=== PATIENT | female | born 1980 | race Caucasian/White ===

== ENCOUNTER → 2016-11-28 | Outpatient (REF) | payer BC, OTHER ==
[~2016-11-28] MED LIST: /ADVA50050 INH; /AUGM875TA OR; /CELE20CA OR; /FEXO18TA OR; /ONDA4TA OR; PAIN325T OR; SING10TA31 OR; TOPI25TA2 OR; TRAM50TA2 OR; UNISOM PO; XOPEAER INH; YAZ3TAB2 OR; ZOLO100T PO
== END ==
LOC: M LAB REF 17:12
PROVIDERS: ATTEND Family Medicine
DX: Z12.4 Encounter for screening for malignant neoplasm of cervix (principal)
CPT/HCPCS: 87624; G0123

== ENCOUNTER 2019-01-10 18:35 | Emergency (ER) | payer BC ==
[~2019-01-10] VITALS: Ht 152.4 cm; Wt 53.2 kg
[~2019-01-10 18:35] MED LIST changes: -/ADVA50050 INH; -/CELE20CA OR; -/ONDA4TA OR; +ADVA1AER2 INH; +CELE1CAP4 OR; +ONDA-1 OR
[2019-01-10] MEDS ORDERED: TRAZ-163 PO (18:54)
[2019-01-10] MEDS ORDERED: DICY10CA13 PO (18:54)
[2019-01-10] MEDS ORDERED: METO10TA2 PO (18:54)
[2019-01-10] MEDS ORDERED: RIZA10TA2 PO (18:54)
[2019-01-10] MEDS ORDERED: OMEP-218 PO (18:54)
[2019-01-10] MEDS ORDERED: DULO1CAP5 PO (18:54)
[2019-01-10] MEDS ORDERED: ONDANSETRON 4MG/2ML VIAL (J2405) As Ordered ONE (19:05)
[2019-01-10] MEDS ORDERED: METOCLOPRAMIDE INJ 10MG/2ML VIAL (J2765) IV ONE (19:15)
[2019-01-10] MEDS ORDERED: ONDANSETRON 4MG/2ML VIAL (J2405) IV ONE (19:15)
[2019-01-10] MEDS ORDERED: NS 500 ML IV ONE (19:15)
[2019-01-10] MEDS ORDERED: NS 1,000 ML IV ONE (19:15)
[2019-01-10 19:16] LABS: BASO # 0.1 10^3/uL (0.0-0.2); BASO % 0.6 % (0.0-1.0); HEMATOCRIT 45.9 % (36.0-47.0); HEMOGLOBIN 15.4 g/dl (12.0-15.5); LYMPH % 25.3 % (24.0-44.0); MEAN CORPUSCULAR HEMOGLOBIN 30.1 pg (27.0-33.0); MEAN CORPUSCULAR HGB CONC 33.6 g/dl (32.0-36.5); MEAN CORPUSCULAR VOLUME 89.6 fl (80.0-96.0); MONO % 8.6 % (0.0-5.0); NEUTROPHILS # 6.8 10^3/uL (1.5-8.5); NEUTROPHILS % 57.2 % (36.0-66.0); PLATELET COUNT, AUTOMATED 276 10^3/uL (150-450); RED BLOOD COUNT 5.12 10^6/uL (4.00-5.40); WHITE BLOOD COUNT 11.9 10^3/uL (4.0-10.0)
[2019-01-10 19:37] LABS: ALT/SGPT 87 U/L (12-78); BLOOD UREA NITROGEN 13 MG/DL (7-18); CALCIUM LEVEL 9.2 MG/DL (8.5-10.1); CARBON DIOXIDE LEVEL 20 MEQ/L (21-32); CHLORIDE LEVEL 107 MEQ/L (98-107); CREATININE FOR GFR 0.99 MG/DL (0.55-1.30); GLOMERULAR FILTRATION RATE > 60.0 (>60); GLUCOSE, FASTING 122 MG/DL (70-100); POTASSIUM SERUM 3.6 MEQ/L (3.5-5.1); SODIUM LEVEL 137 MEQ/L (136-145)
[2019-01-10 19:38] LABS: ALBUMIN 3.8 GM/DL (3.2-5.2); BILIRUBIN,DIRECT 0.1 MG/DL (0.0-0.2); BILIRUBIN,TOTAL 0.4 MG/DL (0.2-1.0); LIPASE 151 U/L (73-393); TOTAL PROTEIN 7.3 GM/DL (6.4-8.2)
[2019-01-10 19:39] LABS: HCG, SERUM QUALITATIVE NEGATIVE (NEGATIVE)
[2019-01-10 20:31] VITALS: BP 145/66
== END 2019-01-10 20:48 | disposition home or self-care (01) ==
LOC: M ED 18:35
DX: A08.4 Viral intestinal infection, unspecified (principal); J45.909 Unspecified asthma, uncomplicated; F41.9 Anxiety disorder, unspecified; G43.909 Migraine, unspecified, not intractable, without status migrainosus; K21.9 Gastro-esophageal reflux disease without esophagitis; Z79.899 Other long term (current) drug therapy; Z79.3 Long term (current) use of hormonal contraceptives; Z88.1 Allergy status to other antibiotic agents; Z88.2 Allergy status to sulfonamides
CPT/HCPCS: 80048; 80076; 83690; 84703; 85025; 96361; 96374; 96375; 99284; J2405; J2765

== ENCOUNTER 2019-03-11 18:32 | Emergency (ER) | payer BC ==
[~2019-03-11] VITALS: Ht 152.4 cm; Wt 53.2 kg
[~2019-03-11 18:32] MED LIST changes: +DICY10CA13 PO; +DULO1CAP5 PO; +METO10TA2 PO; +OMEP-218 PO; +RIZA10TA2 PO; +TRAZ-163 PO
[2019-03-11 18:33] VITALS: BP 129/79
[2019-03-11] MEDS ORDERED: PROAAER10 INH (18:41)
[2019-03-11] MEDS ORDERED: ALPR0.5T3 (18:41)
[2019-03-11] MEDS ORDERED: dexameTHASONE 20 MG/5 ML VIAL (J1100) IV ONE (19:00)
[2019-03-11] MEDS ORDERED: IPRATROPIUM 0.5MG/ALBUTEROL 2.5MG INH SOL UD 3ML (DUONEB)(J7620) NEB ONE (19:15)
--- NOTE | 2019-03-11 19:40 | REP ---
Clinical: Dyspnea . Comparison: None . Findings: The mediastinum and cardiac silhouette are stable and within normal limits for portable technique. The lung jaquez are clear without acute consolidation, effusion, or pneumothorax. Skeletal structures are intact. Impression: No acute cardiopulmonary process appreciated. Electronically Signed by Roger Rice MD 03/11/2019 07:31 P
[2019-03-11 19:45] LABS: VENOUS BASE EXCESS -4.7 (-2.0-2.0); VENOUS HCO3 20.8 MEQ/L (23.0-27.0); VENOUS O2 SATURATION 63.1 % (60.0-80.0); VENOUS PARTIAL PRESSURE O2 33.3 mmHg (30.0-50.0); VENOUS PH 7.333 UNITS (7.330-7.430); VENOUS STANDARD HCO3 19.8 MEQ/L
[2019-03-11 19:48] LABS: BASO # 0.1 10^3/uL (0.0-0.2); BASO % 0.5 % (0.0-1.0); EOS # 2.9 10^3/uL (0.0-0.5); HEMATOCRIT 42.2 % (36.0-47.0); HEMOGLOBIN 13.4 g/dl (12.0-15.5); LYMPH # 0.8 10^3/uL (1.5-5.0); LYMPH % 6.6 % (24.0-44.0); MEAN CORPUSCULAR HEMOGLOBIN 28.8 pg (27.0-33.0); MEAN CORPUSCULAR HGB CONC 31.8 g/dl (32.0-36.5); MEAN CORPUSCULAR VOLUME 90.8 fl (80.0-96.0); MONO # 0.7 10^3/uL (0.0-0.8); MONO % 5.5 % (0.0-5.0); NEUTROPHILS # 8.1 10^3/uL (1.5-8.5); PLATELET COUNT, AUTOMATED 196 10^3/uL (150-450); RED BLOOD COUNT 4.65 10^6/uL (4.00-5.40); WHITE BLOOD COUNT 12.6 10^3/uL (4.0-10.0)
[2019-03-11 20:10] LABS: BLOOD UREA NITROGEN 13 MG/DL (7-18); CALCIUM LEVEL 8.3 MG/DL (8.5-10.1); CARBON DIOXIDE LEVEL 19 MEQ/L (21-32); CHLORIDE LEVEL 110 MEQ/L (98-107); CREATININE FOR GFR 0.78 MG/DL (0.55-1.30); GLOMERULAR FILTRATION RATE > 60.0 (>60); GLUCOSE, FASTING 98 MG/DL (70-100); POTASSIUM SERUM 3.5 MEQ/L (3.5-5.1); SODIUM LEVEL 140 MEQ/L (136-145)
== END 2019-03-11 22:19 | disposition home or self-care (01) ==
LOC: M ED 18:32
DX: J20.9 Acute bronchitis, unspecified (principal); J45.909 Unspecified asthma, uncomplicated; K21.9 Gastro-esophageal reflux disease without esophagitis; F33.9 Major depressive disorder, recurrent, unspecified; F41.9 Anxiety disorder, unspecified; Z86.69 Personal history of other diseases of the nervous system and sense organs; F17.210 Nicotine dependence, cigarettes, uncomplicated; Z88.2 Allergy status to sulfonamides; Z88.1 Allergy status to other antibiotic agents; Z79.51 Long term (current) use of inhaled steroids; Z79.83 Long term (current) use of bisphosphonates; Z79.899 Other long term (current) drug therapy
CPT/HCPCS: 71045; 80048; 82803; 85025; 87486; 87581; 87633; 87798; 94640; 96374; 99284; J1100

== ENCOUNTER → 2019-04-15 | Outpatient (REF) | payer BC ==
[~2019-04-15] MED LIST changes: +ALPR0.5T3; +PROAAER10 INH; -TRAZ-163 PO; +TRAZ-257 PO
[2019-04-15 18:34] LABS: BASO # 0.1 10^3/uL (0.0-0.2); BASO % 0.9 % (0.0-1.0); EOS # 2.7 10^3/uL (0.0-0.5); HEMATOCRIT 45.2 % (36.0-47.0); HEMOGLOBIN 14.2 g/dl (12.0-15.5); LYMPH # 3.9 10^3/uL (1.5-5.0); LYMPH % 36.8 % (24.0-44.0); MEAN CORPUSCULAR HGB CONC 31.4 g/dl (32.0-36.5); MEAN CORPUSCULAR VOLUME 92.4 fl (80.0-96.0); MONO # 0.6 10^3/uL (0.0-0.8); MONO % 5.3 % (0.0-5.0); NEUTROPHILS # 3.3 10^3/uL (1.5-8.5); NEUTROPHILS % 31.1 % (36.0-66.0); PLATELET COUNT, AUTOMATED 267 10^3/uL (150-450); RED BLOOD COUNT 4.89 10^6/uL (4.00-5.40); WHITE BLOOD COUNT 10.5 10^3/uL (4.0-10.0)
[2019-04-15 19:07] LABS: EOS % 25.7 % (0.0-3.0)
== END ==
LOC: M LAB REF 16:49
PROVIDERS: ATTEND Internal Medicine Pulmonary Disease
DX: J45.50 Severe persistent asthma, uncomplicated (principal)

== ENCOUNTER → 2019-08-06 | Outpatient (CLI) | payer BC ==
[2019-08-06 08:15] LABS: EOS # 0.4 10^3/uL (0.0-0.5)
[2019-08-11 16:08] LABS: ANCA-ATYPICAL <1:20 titer (Neg:<1:20); CYTOPLASMIC NEUTROP AB ANCA-C <1:20 titer (Neg:<1:20); PERINUCLEAR AB ANCA-P <1:20 titer (Neg:<1:20); PR3 ANTIPROTEINASE ANTIBODIES <3.5 U/mL (0.0-3.5)
== END ==
LOC: M LAB 06:59
PROVIDERS: ATTEND Internal Medicine Pulmonary Disease
DX: J45.40 Moderate persistent asthma, uncomplicated (principal)

== ENCOUNTER → 2020-03-01 | Outpatient (REF) | payer SELFPAY | LOC: EDSTATUS 11:50 → M LABSMTC 12:05 | PROVIDERS: ATTEND Pediatrics | DX: Z11.59 Encounter for screening for other viral diseases (principal) ==

== ENCOUNTER → 2020-03-24 | Outpatient (REF) | payer SELFPAY | LOC: EDSTATUS 12:30 → M LABSMTC 13:14 | PROVIDERS: ATTEND Pediatrics | DX: Z20.822 Contact with and (suspected) exposure to COVID-19 (principal) ==

== ENCOUNTER → 2020-08-19 | Outpatient (CLI) | payer BC ==
[2020-08-19 18:22] LABS: BASO # 0.1 10^3/uL (0.0-0.2); BASO % 0.8 % (0.0-1.0); EOS # 3.9 10^3/uL (0.0-0.5); HEMATOCRIT 43.7 % (36.0-47.0); HEMOGLOBIN 14.2 g/dl (12.0-15.5); LYMPH # 4.5 10^3/uL (1.5-5.0); LYMPH % 30.2 % (24.0-44.0); MEAN CORPUSCULAR HEMOGLOBIN 29.3 pg (27.0-33.0); MEAN CORPUSCULAR HGB CONC 32.5 g/dl (32.0-36.5); MEAN CORPUSCULAR VOLUME 90.1 fl (80.0-96.0); MONO # 0.8 10^3/uL (0.0-0.8); MONO % 5.3 % (2.0-8.0); NEUTROPHILS # 5.7 10^3/uL (1.5-8.5); NEUTROPHILS % 37.6 % (36.0-66.0); PLATELET COUNT, AUTOMATED 280 10^3/uL (150-450); RED BLOOD COUNT 4.85 10^6/uL (4.00-5.40)
[2020-08-19 18:53] LABS: ALBUMIN 3.8 GM/DL (3.2-5.2); ALT/SGPT 21 U/L (12-78); BILIRUBIN,TOTAL 0.2 MG/DL (0.2-1.0); BLOOD UREA NITROGEN 10 MG/DL (7-18); CARBON DIOXIDE LEVEL 22 MEQ/L (21-32); CHLORIDE LEVEL 107 MEQ/L (98-107); CREATININE FOR GFR 0.81 MG/DL (0.55-1.30); FERRITIN 67 NG/ML (8-252); FREE T4 0.85 NG/DL (0.76-1.46); GLOMERULAR FILTRATION RATE > 60.0 (>60); GLUCOSE, FASTING 92 MG/DL (70-100); IRON (FE) 41 UG/DL (50-170); PERCENT SATURATION 10.4 % (13.2-45.0); POTASSIUM SERUM 3.7 MEQ/L (3.5-5.1); SODIUM LEVEL 139 MEQ/L (136-145); TOTAL IRON BINDING CAPACITY 393 UG/DL (250-450); TOTAL PROTEIN 7.2 GM/DL (6.4-8.2)
[2020-08-19 18:55] LABS: EOS % 25.8 % (0.0-3.0); TOTAL 25(OH) VITAMIN D 31.1 NG/ML (30.0-100.0); VITAMIN B12 LEVEL 1341 PG/ML (247-911)
[2020-08-23 14:09] LABS: TISSUE TRANSGLUTAMINASE IgA <2 U/mL (0-3); TISSUE TRANSGLUTAMINASE IgG <2 U/mL (0-5); UNITSIGA FOR GLIADIN IGA 2 units (0-19); UNITSIGG FOR GLIADIN IGG 1 units (0-19)
== END ==
LOC: M LAB 18:00
PROVIDERS: ATTEND Family Medicine
DX: D50.8 Other iron deficiency anemias (principal)

== ENCOUNTER 2020-12-28 22:20 | Emergency (ER) | payer BC ==
[~2020-12-28] VITALS: Ht 162.6 cm; Wt 65.0 kg
--- OUTSIDE RECORDS SUMMARY | 2020-12-28 22:25 | CCD | Continuity of Care Document ---
Author Author Laurie LUCAS Organization [place] [address] Phone [phone] Care Team Providers Care Trench Trimmer Fine Name Role Phone Audrey Morrison D.O. AUTM [phone] James Aldana D.O. PHD AUTM Problems Active Problems Provider Date Uncomplicated moderate persistent asthma Nathan Blanca Onset: 07/04/2016 Moderate recurrent major depression LEATHA Blanca Ons et: 07/04/2016 Insomnia LEATHA Blanca Onset: 07/04/2016 Status migrainosus LEATHA Blanca Onset: 07/04/2016 Social History Type Date Description Comments Sex Unknown ETOH Use Occasionally consumes alcohol Tobacco Use Start: Unknown Patient has never smoked Recreational Drug Use Denies Drug Use Smoking Status Reviewed: 08/02/20 Patient has never smoked Exercise Type/Frequency Does not exercise Sun Exposure Uses sunscreen Seat Belt/Car Seat Always uses seat belt Allergies and adverse reactions Active Allergies Criticality Reaction | Severity Comments Date Cefaclor Unable to assess criticality Urticaria 07/04/2016 Doxycycline Unable to assess criticality Urticaria 07/04/2016 Sulfa Unable to assess criticality Nausea and Vomiting 07/04/2016 Ambien Unable to assess criticality Sleep walking 07/18/2016 Medications Active Medications SIG Qnty Indications Ordering Provide r Date Quetiapine Fumarate 100mg Tablets Take one tablet by mouth one hour before bed 90tabs Audrey Monroe D.O. 12/27/2020 Alprazolam 0.5mg Tablets take one tablet by mouth every 8 hours as needed 42tabs F06.31 Sushil TuckerOUbaldo 12/08/2020 Montelukast Sodium 10mg Tablets Take 1 Tablet Every Night 90tabs Sushil ArredondoOUbaldo Venlafaxine HCL ER 150mg Caps ER 2 4HR 1 by mouth every day 90caps F33.2 Sushil ArredondoOUbaldo 08/02 Topiramate 100mg Tablets Take 1 Tablet Twice A Day 180tabs Sushil ArredondoOUbaldo 06/13 Drospirenone-Ethinyl Estradiol 3-0.02mg Tablets Take 1 Tablet Daily 84tabs Sushil ArredondoOUbaldo 06/02/2018 Rizatriptan Benzoate 10mg Tablets Take 1 Tablet AT The Start Of Headache And Repeat In 2 Hours If Needed 14tabs Domitila Arredondo.OUbaldo 03/18/2018 Ventolin HFA 108(90Base) mcg/Act A erosol 2 puffs every 4 hours shortness of breath or wheezing 24gm Sushil ArredondoOUbaldo 01/24/2018 Ipratropium [place]/Albuterol Sulfate 0.5-2.5(3)mg/3ML Solution 4 x a day as needed 180units J06.9 Sushil GrayOUbaldo 12/09/2017 Budesonide 0.5mg/2ML Suspension 1 vial via nebulizer two times a day 1box J06.9 Sushil ArredondoOUbaldo 12/09/2017 Dicyclomine HCL 10mg Capsules Take 2 Capsules Every Evening 180caps Domitila Arredondo.O . 02/19/2017 Dupixent 300mg/2ML Soln Prefill Syringe Wendie Davis MD Advair Diskus 100-50mcg/Dose Aeros ol inhale one puff by mouth twice a day not covered Unknown Vitamin D3 50mcg (2000 Ut) Capsule s 1 by mouth every day Unknown Flovent HFA 220mcg/Act Aerosol two puffs twice a day as needed Unknown Omeprazole 20mg Capsules DR Take 1 Capsule Daily 90caps Sushil ArredondoO. Trazodone HCL 100mg Tablets Take 1 Tablet Every Night AT Bedtime 90tabs Sushil ArredondoO . Citrucel 500mg Tablets 1 tab by mouth twice a day Unknown Zofran 4mg Tablets 1 tablet every 6h as needed nausea 30tabs Sushil ArredondoO. Multivitamin Adult Tablets 1 by mouth every day Unknown Magnesium 400mg Tablets one tablet by mouth once per day 90tabs Sushil ArredondoOUbaldo Probiotic Capsules 1 caps in th in the morning Unknown Cristina Allergy 180mg Tablets take 1 tab by mouth daily Unknown History Medications Seroquel 200mg Tablets Take one tablet by mouth each night, one hour before bed. 30tabs F06.31 Sushil YoungO. 12/13/2020 - 12/13/2020 Quetiapine Fumarate 200mg Tablets Take one tablet by mouth one hour before bed 30tabs Sushil KochOUbaldo 12/13/2020 - 12/27/2020 Quetiapine Fumarate 100mg Tablets Take one tablet by mouth each night, one hour before bed. 30tabs F06.31 Sushil ClintonO. 12/08/2020 - 12/13/2020 Singulair 5mg Chewtabs 1 by mouth every day 90units J45.40 Sushil ArredondoOUbaldo 10/10 - 11/07/2020 Aripiprazole 2mg Tablets take one tablet by mouth once a night. 30tabs F43.22 Sushil ArredondoO . 10/10/2020 - 11/07/2020 Ferrous Gluconate 324(38Fe) mg Tab lets 1 by mouth every day 90tabs D50.9 Sushil ArredondoOUbaldo - 11/07/2020 Ferrous Sulfate 325(65Fe) mg Table ts 1 by mouth every day 90tabs D50.9 Sushil ArredondoOUbaldo 08/23 - 09/20/2020 Clonazepam 1mg Tablets take one tablet by mouth twice a day as needed maximum daily dose = 2 istop: [id number] 60tabs F33.2 Domitila Arredondo.O. 08/23/2020 - 12/08/2020 Xanax 0.5mg Tablets take one tablet by daily as needed istop [id number] 30tabs Domitila Soliz.O. 08/23/2020 - 12/08/2020 Clonazepam 0.5mg Tablets take one tablet by mouth twice a day as needed maximum daily dose = 2 istop: [id number] 30tabs F33.2 Doimtila Arredondo.OUbaldo 08/02/2020 - 08/23/2020 Medications Administered in Office Medication SIG Qnty Indications Ordering Provider Date Injection Promethazine Hci To 50 MG Injection LEATHA Blanca 017 Injection Ketorolac Tromethamine Per 15 MG (Toradol) Injection LEATHA Davey 07/04/2016 Therapeutic, Prophylactic Or Diagnostic Injection Subq/Im Injection LEATHA Davey 07/04/2016 Immunizations CPT Code Status Date Vaccine Lot # [id number] Given 12/27/2020 Influenza Virus Vaccine, Quadrivalent, Slit Virus, Im Use [id number] Vital Signs Date Vital Result Comment 12/27/2020 11:26am BP Systolic 126 mmHg BP Diastolic 78 mmHg Height 58.8 inches 4'10.80" Weight 130.00 lb BMI (Body Mass Index) 26.4 kg/m2 Heart Rate 103 /min Respiratory Rate 18 /min Body Temperature 97.3 F O2 % BldC Oximetry 98 % [place] Body Weight 100 lb 12/13/2020 11:24am BP Systolic 118 mmHg BP Diastolic 78 mmHg Height 58.8 inches 4'10.80" Weight 129.00 lb BMI (Body Mass Index) 26.2 kg/m2 Heart Rate 84 /min Respiratory Rate 18 /min Body Temperature 98.0 F O2 % BldC Oximetry 99 % [place] Body Weight 100 lb Results Test Acquired Date Facility Test Result H/L Range Note Laboratory test finding 08/19/[address] [address] [phone] Total 25(Oh) Vitamin D 31.1 NG/ML Normal 30.0-100. 0 FT4&TSH Panel 08/19/2020 [facility] [address] [place] [address] [phone] Thyroid Stimulating Hormone 3.370 uIU/ML Normal 0. 358-3.740 Free T4 0.85 ng/dL Normal 0.76-1.46 Comprehensive Metabolic Profil 08/19/[address] [address] [phone] Glucose, Fasting 92 mg/dL Normal 70-100 Blood Urea Nitrogen 10 mg/dL Normal 7-18 Creatinine For GFR 0.81 mg/dL Normal 0.55-1.30 Glomerular Filtration Rate > 60.0 Normal >60 1 Sodium Level 139 mEq/L Normal 136-145 Potassium Serum 3.7 mEq/L Normal 3.5-5.1 Chloride Level 107 mEq/L Normal 98-107 Carbon Dioxide Level 22 mEq/L Normal 21-32 Anion Gap 10 mEq/L Normal 8-16 Calcium Level 9.0 mg/dL Normal 8.5-10.1 Ast/Sgot 9 U/L Normal 7-37 Alt/SGPT 21 U/L Normal 12-78 Alkaline Phosphatase 73 U/L Normal 45-117 Bilirubin,Total 0.2 mg/dL Normal 0.2-1.0 Total Protein 7.2 GM/DL Normal 6.4-8.2 Albumin 3.8 GM/DL Normal 3.2-5.2 Albumin/Globulin Ratio 1.1 Low 1.2-2.2 CBC With Differential 08/19/[address] [address] [phone] White Blood Count 15.0 10 High 4.0-10.0 Red Blood Count 4.85 10 Normal 4.00-5.40 Hemoglobin 14.2 g/dL Normal 12.0-15.5 Hematocrit 43.7 % Normal 36.0-47.0 Mean Corpuscular Volume 90.1 fl Normal 80.0-96.0 Mean Corpuscular Hemoglobin 29.3 pg Normal 27.0-33.0 Mean Corpuscular HGB Conc 32.5 g/dL Normal 32.0-36.5 Red Cell Distribution Width 14.3 % Normal 11.5-14.5 Platelet Count, Automated 280 10 Normal 150-450 Neutrophils % 37.6 % Normal 36.0-66.0 Lymph % 30.2 % Normal 24.0-44.0 Bond % 5.3 % Normal 2.0-8.0 Eos % 25.8 % High 0.0-3.0 2 Baso % 0.8 % Normal 0.0-1.0 Immature Granulocyte % 0.3 % Normal 0-3.0 Nucleated Red Blood Cell % 0.0 % Normal 0-0 Neutrophils # 5.7 10 Normal 1.5-8.5 Lymph # 4.5 10 Normal 1.5-5.0 Bond # 0.8 10 Normal 0.0-0.8 Eos # 3.9 10 High 0.0-0.5 Baso # 0.1 10 Normal 0.0-0.2 Laboratory test finding 08/19/[address] [address] [phone] Vitamin B12 Level 1341 pg/mL High 247-911 3 Ferritin 67 NG/ML Normal 8-252 Total Iron Binding Capacit 08/19/[address] 6267179 [phone] Iron (Fe) 41 g/dL Low 50-170 Total Iron Binding Capacity 393 g/dL Normal 250-450 Percent Saturation 10.4 % Low 13.2-45.0 Anti-Gliadin Antibody 08/19/[address] [id number] [phone] Unitsiga For Gliadin Iga 2 units Normal 0-19 4 Unitsigg For Gliadin Igg 1 units Normal 0-19 5 Laboratory test finding 08/19/[address] [address] [phone] Tissue Transglutaminase IgG <2 U/mL Normal 0-5 6 Tissue Transglutaminase IgA <2 U/mL Normal 0-3 7 1 Units are mL/min/1.73 m2 Chronic Kidney Disease Staging per NKF: Stage I & II GFR >=60 Normal to Mildly Decreased Stage III GFR 30-59 Moderately Decreased Stage IV GFR 15-29 Severely Decreased Stage V GFR <15 Very Little GFR Left ESRD GFR <15 on LIVESTOCK DEALER 2 Scan Verified machine result s 3 VITAMIN B12 NORMAL RANGE NORMAL 247 - 911 PG/ML INDETERMINATE 211 - 246 PG/ML DEFICIENT LESS THAN 211 PG/ML 4 Negative 0 - 19 Weak Positive 20 - 30 Moderate to Strong Positive >30 5 Negative 0 - 19 Weak Positive 20 - 30 Moderate to Strong Positive >30 6 Negative 0 - 5 Weak Positive 6 - 9 Positive >9 Performed at: RN - [facility] [address] [id number] Ehr Trainer: Viry Marr MD, Phone: [phone] 7 Negative 0 - 3 Weak Positive 4 - 10 Positive >10 . Tissue Transglutaminase (tTG) has been identified as the endomysial antigen. Studies have demonstr- ated that endomysial IgA antibodies have over 99% specificity for gluten sensitive enteropathy. Procedures Date Code Description Status 12/27/2020 45924 Office/Outpatient Established Mo d MDM 30-39 Min Completed 12/13/2020 38327 Office/Outpatient Established Mo d MDM 30-39 Min Completed 12/08/2020 21269 Office/Outpatient Established Mo d MDM 30-39 Min Completed 12/08/2020 44899 Brief Emotional/Beha v Assessment W/ Scoring Doc Per Standard Inst Completed 11/07/2020 68052 Office/Outpatient Established Lo w MDM 20-29 Min Completed 10/10/2020 68732 Office/Outpatient Established Mo d MDM 30-39 Min Completed 10/10/2020 82171 Brief Emotional/Beha v Assessment W/ Scoring Doc Per Standard Inst Completed 08/23/2020 21051 Office/Outpatient Established Mo d MDM 30-39 Min Completed 08/02/2020 31728 Office/Outpatient Established Mo d MDM 30-39 Min Completed Medical Devices Description No Information Available Encounters Type Date Location Provider Dx Diagnosis Office Visit 12/27/2020 11:20a Family Medicine [facility] LEATHA Pino F33.1 Major depressive disorder, r ecurrent, moderate 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 G47.00 Insomnia, unspecified Z23 Encounter for immunization Office Visit 12/13/2020 11:30a Family [facility] LEATHA Chisholm F33.1 Major depressive disorder, r ecurrent, moderate 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 Office Visit 12/08/2020 11:20a [facility] LEATHA Chisholm F33.1 Major depressive disorder, r ecurrent, moderate R45.851 Suicidal ideations 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 Office Visit 11/07/2020 10:30a [facility] LEATHA Chisholm F33.1 Major depressive disorder, r ecurrent, moderate G47.00 Insomnia, unspecified G43.901 Migraine, unsp, not intracta ble, with status migrainosus 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 F33.2 Major depressv disorder, rec urrent severe w/o psych features G47.00 Insomnia, unspecified G43.901 Migraine, unsp, not intracta ble, with status migrainosus F41.9 Anxiety disorder, unspecifie d E55.9 Vitamin D deficiency, unspec ified J45.40 Moderate persistent asthma, uncomplicated D50.9 Iron deficiency anemia, unsp ecified Office Visit 08/02/2020 8:40a [facility] Audrey Morrison D.O. 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 LEATHA Chisholm 12/27/2020 G47.00 Insomnia, unspecified LEATHA Arreaga 12/27/2020 Z23 Encounter for immunization LEATHA Howard 12/13/2020 F33.1 Major depressive disorder, recur rent, moderate LEATHA Chisholm 12/13/2020 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 LEATHA Chisholm 12/08/2020 F33.1 Major depressive disorder, recur rent, moderate LEATHA Chisholm 12/08/2020 R45.851 Suicidal ideations LEATHA Delgado 12/08/2020 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 LEATHA Chisholm 11/07/2020 F33.1 Major depressive disorder, recur rent, moderate LEATHA Chisholm 11/07/2020 G47.00 Insomnia, unspecified LEATHA Arreaga 11/07/2020 G43.901 Migraine, unspecifie d, not intractable, with status migrainosus LEATHA Chisholm 11/07/2020 Z79.899 Other senior care (current) drug t herapy LEATHA Chisholm 10/10/2020 D50.9 Iron deficiency anemia, unspecif ied LEATHA Chisholm 10/10/2020 K58.0 Irritable bowel syndrome with di arrhea LEATHA Chisholm 10/10/2020 J45.40 Moderate persistent asthma, unco mplicated LEATHA Chisholm 10/10/2020 F43.22 Adjustment disorder with anxiety LEATHA Chisholm 10/10/2020 F33.2 Major depressive dis order, recurrent severe without psychotic features LEATHA Chisholm 08/23/2020 F33.2 Major depressive dis order, recurrent severe without psychotic features Audrey Morrison, D.O. 08/23/2020 G47.00 Insomnia, unspecified Audrey Mosher, D.O. 08/23/2020 G43.901 Migraine, unspecifie d, not intractable, with status migrainosus Audrey Morrison, D.O. 08/23/2020 F41.9 Anxiety disorder, unspecified Terrence Norwoodber, D.O. 08/23/2020 E55.9 Vitamin D deficiency, unspecifie d Audrey Morrison, D.O. 08/23/2020 J45.40 Moderate persistent asthma, unco mplicated Audrey Coon, D.O. 08/23/2020 D50.9 Iron deficiency anemia, unspecif ied Audrey Morrison, D.O. 08/02/2020 F33.2 Major depressive dis order, recurrent severe without psychotic features Audrey Morrison, D.O. 08/02/2020 G47.00 Insomnia, unspecified Audrey Mosher, D.O. 08/02/2020 G43.901 Migraine, unspecifie d, not intractable, with status migrainosus Audrey Morrison, D.O. 08/02/2020 F41.9 Anxiety disorder, unspecified Terrence Morrison, D.O. 08/02/2020 Z13.29 Encounter for screen ing for other suspected endocrine disorder Audrey Morrison D.O. 08/02/2020 E55.9 Vitamin D deficiency, unspecifie d Audrey Morrison, D.O. Plan of Treatment Future Appointment(s):* 01/27/2021 9:40 am - LEATHA Chisholm at [facility] Functional Status Description No Information Available Mental Status Description No Information Available Referrals Refer to Dr Reason for Referral Status Appt Date James Aldana D.O. PHD Laurie has depression with mood disorder and some active thoughts of SI without a plan. Please evaluate and treat. Sent 01/11/2021 [employer] [address] [place] [address] [phone]
--- OUTSIDE RECORDS SUMMARY | 2020-12-28 22:25 | CCD | Continuity of Care Document ---
Author Author Laurie LUCAS Organization Unknown [place] [address] Phone [phone] Care Team Providers Care Cloth Mercerizer Operator Name Role Phone Audrey Morrison D.O. AUTM [phone] James Aldana D.O. PHD AUTM [phone] Problems Active Problems Provider Date Uncomplicated moderate [...] or wheezing 24gm Sushil ArredondoOUbaldo 01/24/2018 Ipratropium [place]/Albuterol Sulfate 0.5-2.5(3)mg/3ML Solution 4 x a day [...] needed maximum daily dose = 2 istop: [id number] 60tabs F33.2 Domitila Arredondo.O. 08/23/2020 - 12/08/2020 Xanax 0.5mg Tablets take one tablet by daily as needed istop [id number] 30tabs Domitila Soliz.O. 08/23/2020 - 12/08/2020 Clonazepam 0.5mg Tablets take one tablet by mouth twice a day as needed maximum daily dose = 2 istop: [id number] 30tabs F33.2 Domitila Arredondo.OUbaldo 08/02/2020 - 08/23/2020 Medications Administered in Office Medication SIG Qnty Indications Ordering Provider Date Injection Promethazine Hci To 50 MG Injection LEATHA Blanca 017 Injection Ketorolac Tromethamine Per 15 MG (Toradol) Injection LEATHA Davey 07/04/2016 Therapeutic, Prophylactic Or Diagnostic Injection Subq/Im Injection LEATHA Davey 07/04/2016 Immunizations CPT Code Status Date Vaccine Lot # [id number] Given 12/27/2020 Influenza Virus Vaccine, Quadrivalent, Slit Virus, Im Use [id number] Vital Signs Date Vital Result Comment 12/27/2020 11:26am BP Systolic 126 mmHg BP Diastolic 78 mmHg Height 58.8 inches 4'10.80" Weight 130.00 lb BMI (Body Mass Index) 26.4 kg/m2 Heart Rate 103 /min Respiratory Rate 18 /min Body Temperature 97.3 F O2 % BldC Oximetry 98 % [place] Body Weight 100 lb 12/13/2020 11:24am BP Systolic 118 mmHg BP Diastolic 78 mmHg Height 58.8 inches 4'10.80" Weight 129.00 lb BMI (Body Mass Index) 26.2 kg/m2 Heart Rate 84 /min Respiratory Rate 18 /min Body Temperature 98.0 F O2 % BldC Oximetry 99 % [place] Body Weight 100 lb Results Test Acquired Date Facility Test Result H/L Range Note Laboratory test finding 08/19/[address] [address] [phone] Total 25(Oh) Vitamin D 31.1 NG/ML Normal 30.0-100. 0 FT4&TSH Panel 08/19/2020 [facility] nter [address] [place] [address] [phone] Thyroid Stimulating Hormone 3.370 uIU/ML Normal 0. 358-3.740 Free T4 0.85 ng/dL Normal 0.76-1.46 Comprehensive Metabolic Profil 08/19/[address] [address] [phone] Glucose, Fasting 92 mg/dL Normal 70-100 Blood [...] 1.1 Low 1.2-2.2 CBC With Differential 08/19/[address] [address] [phone] White Blood Count 15.0 10 High 4.0-10.0 [...] 36.0-66.0 Lymph % 30.2 % Normal 24.0-44.0 [place] % 5.3 % Normal 2.0-8.0 Eos % 25.8 % High 0.0-3.0 2 Baso % 0.8 % Normal 0.0-1.0 Immature Granulocyte % 0.3 % Normal 0-3.0 Nucleated Red Blood Cell % 0.0 % Normal 0-0 Neutrophils # 5.7 10 Normal 1.5-8.5 Lymph # 4.5 10 Normal 1.5-5.0 [place] # 0.8 10 Normal 0.0-0.8 Eos # 3.9 10 High 0.0-0.5 Baso # 0.1 10 Normal 0.0-0.2 Laboratory test finding 08/19/[address] [address] [phone] Vitamin B12 Level 1341 pg/mL High 247-911 3 Ferritin 67 NG/ML Normal 8-252 Total Iron Binding Capacit 08/19/[address] [address]124 [phone] Iron (Fe) 41 g/dL Low 50-170 Total Iron Binding Capacity 393 g/dL Normal 250-450 Percent Saturation 10.4 % Low 13.2-45.0 Anti-Gliadin Antibody 08/19/[address] [id number] [phone] Unitsiga For Gliadin Iga 2 units Normal 0-19 4 Unitsigg For Gliadin Igg 1 units Normal 0-19 5 Laboratory test finding 08/19/[address] [address] [phone] Tissue Transglutaminase IgG <2 U/mL Normal 0-5 6 Tissue Transglutaminase IgA <2 U/mL Normal 0-3 7 1 Units are mL/min/1.73 m2 Chronic Kidney Disease Staging per NKF: Stage I & II GFR >=60 Normal to Mildly Decreased Stage III GFR 30-59 Moderately Decreased Stage IV GFR 15-29 Severely Decreased Stage V GFR <15 Very Little GFR Left ESRD GFR <15 on 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 Tissue Transglutaminase (tTG) has been identified as the endomysial antigen. Studies have demonstr- ated that endomysial IgA antibodies have over 99% specificity for gluten sensitive enteropathy. Procedures Date Code Description Status 12/27/2020 08744 Office/Outpatient Established Mo d MDM 30-39 Min Completed 12/13/2020 32964 Office/Outpatient Established Mo d MDM 30-39 Min Completed 12/08/2020 75760 Office/Outpatient Established Mo d MDM 30-39 Min Completed 12/08/2020 72195 Brief Emotional/Beha v Assessment W/ Scoring Doc Per Standard Inst Completed 11/07/2020 20162 Office/Outpatient Established Lo w MDM 20-29 Min Completed 10/10/2020 23973 Office/Outpatient Established Mo d MDM 30-39 Min Completed 10/10/2020 03937 Brief Emotional/Beha v Assessment W/ Scoring Doc Per Standard Inst Completed 08/23/2020 98790 Office/Outpatient Established Mo d MDM 30-39 Min Completed 08/02/2020 14079 Office/Outpatient Established Mo d MDM 30-39 Min Completed Medical Devices Description No Information Available Encounters Type Date Location Provider Dx Diagnosis Office Visit 12/27/2020 11:20a Family Medicine [facility] LEATHA Pino F33.1 Major depressive disorder, r ecurrent, moderate 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 G47.00 Insomnia, unspecified Z23 Encounter for immunization Office Visit 12/13/2020 11:30a Family [facility] LEATHA Chisholm F33.1 Major depressive disorder, r ecurrent, moderate 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 Office Visit 12/08/2020 11:20a [facility] LEATHA Chisholm F33.1 Major depressive disorder, r ecurrent, moderate R45.851 Suicidal ideations 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 Office Visit 11/07/2020 10:30a [facility] LEATHA Chisholm F33.1 Major depressive disorder, r ecurrent, moderate G47.00 Insomnia, unspecified G43.901 Migraine, unsp, not intracta ble, with status migrainosus 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 F33.2 Major depressv disorder, rec urrent severe w/o psych features G47.00 Insomnia, unspecified G43.901 Migraine, unsp, not intracta ble, with status migrainosus F41.9 Anxiety disorder, unspecifie d E55.9 Vitamin D deficiency, unspec ified J45.40 Moderate persistent asthma, uncomplicated D50.9 Iron deficiency anemia, unsp ecified Office Visit 08/02/2020 8:40a [facility] Audrey Morrison D.O. F33.2 Major depressv disorder, [...] status migrainosus LEATHA Chisholm 11/07/2020 Z79.899 Other residential (current) drug t herapy LEATHA Chisholm 10/10/2020 [...] 01/27/2021 9:40 am - LEATHA Chisholm at [facility] Functional Status Description No Information Available Mental Status Description No Information Available Referrals Refer to Dr Reason for Referral Status Appt Date James Aldana D.O. PHD Laurie has depression with mood disorder and some active thoughts of SI without a plan. Please evaluate and treat. Sent 01/11/2021 [facility] [address] [place] [address] [phone]
--- OUTSIDE RECORDS SUMMARY | 2020-12-28 22:26 | CCD | Continuity of Care Document ---
Author Author Laurie LUCAS Organization [place] [address] Phone [phone] Care Team Providers Care Billing Checker Name Role Phone Audrey Morrison D.O. AUTM Problems Active Problems Provider Date Uncomplicated moderate persistent asthma Nathan Blanca Onset: 07/04/2016 Moderate recurrent major depression LEATHA Blanca Ons et: 07/04/2016 Insomnia LEATHA Blanca Onset: 07/04/2016 Status migrainosus LEATHA Blacna Onset: 07/04/2016 Social History Type Date Description Comments Sex Unknown ETOH Use Occasionally consumes alcohol Tobacco Use Start: Unknown Patient has never smoked Recreational Drug Use Denies Drug Use Smoking Status Reviewed: 08/02/20 Patient has never smoked Exercise Type/Frequency Does not exercise Sun Exposure Uses sunscreen Seat Belt/Car Seat Always uses seat belt Allergies, Adverse Reactions, Alerts Active Allergies Criticality Reaction | Severity Comments [...] night, one hour before bed. 30tabs F06.31 Audrey Coon DUbaldoOUbaldo 12/08/2020 Alprazolam 0.5mg Tablets take one tablet by mouth every 8 hours as needed 21tabs F06.31 Audrey bland DUbaldoO. 12/08/2020 Montelukast Sodium 10mg Tablets Take 1 [...] Repeat In 2 Hours If Needed 14tabs Sushil ArredondoOUbaldo 03/18/2018 Ventolin HFA 108(90Base) mcg/Act A erosol 2 puffs every 4 hours shortness of breath or wheezing 24gm Sushil ArredondoOUbaldo 01/24/2018 Ipratropium [place]/Albuterol Sulfate 0.5-2.5(3)mg/3ML Solution 4 x a day as needed 180units J06.9 Yamilet Coon D.O. 12/09/2017 Budesonide 0.5mg/2ML Suspension 1 vial via nebulizer two times a day 1box J06.9 Sushil ArredondoOUbaldo 12/09/2017 Dicyclomine HCL 10mg Capsules Take 2 Capsules Every Evening 180caps Sushil ArredondoO Ubaldo 02/19/2017 Dupixent 300mg/2ML Soln Prefill Syringe Wendie Davis MD Advair Diskus 100-50mcg/Dose Aeros ol inhale one puff by mouth twice a day not covered Unknown Vitamin D3 50mcg (2000 Ut) Capsule s 1 by mouth every day Unknown Flovent HFA 220mcg/Act Aerosol two puffs twice a day as needed Unknown Zofran 4mg Tablets 1 tablet every 6h as needed nausea 30tabs Sushil ArredondoOUbaldo Omeprazole 20mg Capsules DR Take 1 Capsule Daily 90caps Sushil ArredondoO. Citrucel 500mg Tablets 1 tab by mouth twice a day Unknown Trazodone HCL 100mg Tablets Take 1 Tablet Every Night AT Bedtime 90tabs Sushil ArredondoO Ubaldo Multivitamin Adult Tablets 1 by mouth every day Unknown Magnesium 400mg Tablets one tablet by mouth once per day 90tabs Sushil ArredondoOUbaldo Probiotic Capsules 1 caps in th in the morning Unknown Cristina Allergy 180mg Tablets take 1 tab by mouth daily Unknown History Medications Singulair 5mg Chewtabs 1 by mouth every day 90units J45.40 Sushil ArredondoOUbaldo 10/10 - 11/07/2020 Aripiprazole 2mg Tablets take one tablet by mouth once a night. 30tabs F43.22 Sushil ArredondoO Ubaldo 10/10/2020 - 11/07/2020 Ferrous Gluconate 324(38Fe) mg Tab lets 1 by mouth every day 90tabs D50.9 Sushil ArredondoO. - 11/07/2020 Ferrous Sulfate 325(65Fe) mg Table ts 1 by mouth every day 90tabs D50.9 Domitila Arredondo.O. 08/23 - 09/20/2020 Clonazepam 1mg Tablets take one tablet by mouth twice a day as needed maximum daily dose = 2 istop: [id number] 60tabs F33.2 Sushil ArredondoO. 08/23/2020 - 12/08/2020 Xanax 0.5mg Tablets take one tablet by daily as needed istop [id number] 30tabs Sushil SolizOUbaldo 08/23/2020 - 12/08/2020 Clonazepam 0.5mg Tablets take one tablet by mouth twice a day as needed maximum daily dose = 2 istop: [id number] 30tabs F33.2 Audrey Morrison D.O. 08/02/2020 - 08/23/2020 Medications Administered in Office Medication SIG Qnty Indications Ordering Provider Date Injection Promethazine Hci To 50 MG Injection LEATHA Blanca 017 Injection Ketorolac Tromethamine Per 15 MG (Toradol) Injection LEATHA Davey 07/04/2016 Therapeutic, Prophylactic Or Diagnostic Injection Subq/Im Injection LEATHA Davey 07/04/2016 Immunizations Description No Information Available Vital Signs Date Vital Result Comment 11/07/2020 10:45am BP Systolic 118 mmHg BP Diastolic 78 mmHg Height 58.8 inches 4'10.80" Weight 129.50 lb BMI (Body Mass Index) 26.3 kg/m2 Heart Rate 95 /min Respiratory Rate 18 /min Body Temperature 97.9 F O2 % BldC Oximetry 95 % [place] Body Weight 100 lb 10/10/2020 1:25pm BP Systolic 120 mmHg BP Diastolic 78 mmHg Height 58.8 inches 4'10.80" Weight 133.38 lb BMI (Body Mass Index) 27.1 kg/m2 Heart Rate 101 /min Respiratory Rate 14 /min Body Temperature 98.4 F O2 % BldC Oximetry 98 % [place] Body Weight 100 lb Results Test Acquired Date Facility Test Result H/L Range Note Laboratory test finding 08/19/[address] [id number] [phone] Total 25(Oh) Vitamin D 31.1 NG/ML Normal 30.0-100. 0 FT4&TSH Panel 08/19/2020 [facility] nter [address] [place] [address] [id number] [phone] Thyroid Stimulating Hormone 3.370 uIU/ML Normal 0. 358-3.740 Free T4 0.85 ng/dL Normal 0.76-1.46 Comprehensive Metabolic Profil 08/19/[address] 7263140 [phone] Glucose, Fasting 92 mg/dL Normal 70-100 Blood [...] 1.1 Low 1.2-2.2 CBC With Differential 08/19/2020 [place] [id number] [phone] White Blood Count 15.0 10 High 4.0-10.0 [...] 36.0-66.0 Lymph % 30.2 % Normal 24.0-44.0 [place] % 5.3 % Normal 2.0-8.0 Eos % 25.8 % High 0.0-3.0 2 Baso % 0.8 % Normal 0.0-1.0 Immature Granulocyte % 0.3 % Normal 0-3.0 Nucleated Red Blood Cell % 0.0 % Normal 0-0 Neutrophils # 5.7 10 Normal 1.5-8.5 Lymph # 4.5 10 Normal 1.5-5.0 [place] # 0.8 10 Normal 0.0-0.8 Eos # 3.9 10 High 0.0-0.5 Baso # 0.1 10 Normal 0.0-0.2 Laboratory test finding 08/19/[address] [address] [phone] Vitamin B12 Level 1341 pg/mL High 247-911 3 Ferritin 67 NG/ML Normal 8-252 Total Iron Binding Capacit 08/19/[address] [address] [phone] Iron (Fe) 41 g/dL Low 50-170 Total Iron Binding Capacity 393 g/dL Normal 250-450 Percent Saturation 10.4 % Low 13.2-45.0 Anti-Gliadin Antibody 08/19/[address] [address] [phone] Unitsiga For Gliadin Iga 2 units Normal 0-19 4 Unitsigg For Gliadin Igg 1 units Normal 0-19 5 Laboratory test finding 08/19/[address] [address] [phone] Tissue Transglutaminase IgG <2 U/mL Normal 0-5 6 Tissue Transglutaminase IgA <2 U/mL Normal 0-3 7 1 Units are mL/min/1.73 m2 Chronic Kidney Disease Staging per NKF: Stage I & II GFR >=60 Normal to Mildly Decreased Stage III GFR 30-59 Moderately Decreased Stage IV GFR 15-29 Severely Decreased Stage V GFR <15 Very Little GFR Left ESRD GFR <15 on STOCK HANDLER 2 Scan Verified machine result s 3 [...] Positive >9 Performed at: RN - [facility] [address] [id number] Dance Entertainer: Viry Marr MD, Phone: [phone] Negative 0 - 3 Weak Positive 4 - 10 Positive >10 . Tissue Transglutaminase (tTG) has been identified as the endomysial antigen. Studies have demonstr- ated that endomysial IgA antibodies have over 99% specificity for gluten sensitive enteropathy. Procedures Date Code Description Status 12/08/2020 25545 Office/Outpatient Established Mo d MDM 30-39 Min Completed 12/08/2020 66564 Brief Emotional/Beha v Assessment W/ Scoring Doc Per Standard Inst Completed 11/07/2020 77523 Office/Outpatient Established Lo w MDM 20-29 Min Completed 10/10/2020 03524 Office/Outpatient Established Mo d MDM 30-39 Min Completed 10/10/2020 18695 Brief Emotional/Beha v Assessment W/ Scoring Doc Per Standard Inst Completed 08/23/2020 82875 Office/Outpatient Established Mo d MDM 30-39 Min Completed 08/02/2020 15296 Office/Outpatient Established Mo d MDM 30-39 Min Completed Medical Devices Description No Information Available Encounters Type Date Location Provider Dx Diagnosis Office Visit 12/08/2020 11:20a [facility] [...] intracta ble, with status migrainosus Z79.899 Other senior care (current) dr martinez therapy Office Visit 10/10/2020 [...] anemia, unsp ecified Office Visit 08/02/2020 8:40a [facility] Pardeep Morrison D.O. 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 08/23/2020 G47.00 Insomnia, unspecified Audrey rodriguez-Shaggy, D.O. 08/23/2020 G43.901 Migraine, unspecifie d, not intractable, with status migrainosus Audrey Morrison, D.O. 08/23/2020 F41.9 Anxiety disorder, unspecified Ji koffi Fernandono-Shaggy, D.O. 08/23/2020 E55.9 Vitamin D deficiency, unspecifie d Audrey Zambrano-Shaggy, D.O. 08/23/2020 J45.40 Moderate persistent asthma, unco mplicated Audrey Coon, D.O. 08/23/2020 D50.9 Iron deficiency anemia, unspecif ied Audrey Zambrano-Shaggy, D.O. 08/02/2020 F33.2 Major depressive dis order, recurrent severe without psychotic features Audrey Morrison, D.O. 08/02/2020 G47.00 Insomnia, unspecified Audrey rodriguez-Shaggy, D.O. 08/02/2020 G43.901 Migraine, unspecifie d, not intractable, with status migrainosus Audrey Zambrano-Shaggy, D.O. 08/02/2020 F41.9 Anxiety disorder, unspecified Terrence Zambrano-Shaggy, D.O. 08/02/2020 Z13.29 Encounter for screen ing for other suspected endocrine disorder Audrey Morrison, D.O. 08/02/2020 E55.9 Vitamin D deficiency, unspecifie d Audrey Morrison, D.O. Plan of Treatment Future Appointment(s):* 12/13/2020 11:30 am - LEATHA Chisholm at [facility] Functional Status Description No Information Available Mental Status Description No Information Available Referrals Refer to Reason for Referral Status Appt Date James Aldana D.O. PHD Laurie has depression with mood disorder and some active thoughts of SI without a plan. Please evaluate and treat. Created [facility] [address] [place] [address] [phone]
--- OUTSIDE RECORDS SUMMARY | 2020-12-28 22:26 | CCD | Continuity of Care Document ---
Author Author Laurie LUCAS Organization [place] [address] Phone [phone] Care Team Providers Care Sonoscope Operator Name Role Phone Audrey Morrison D.O. AUTM [phone] James Aldana D.O. PHD AUTM Problems Active [...] or wheezing 24gm Sushil ArredondoOUbaldo 01/24/2018 Ipratropium [place]/Albuterol Sulfate 0.5-2.5(3)mg/3ML Solution 4 x a day as needed 180units J06.9 Sushil rGayOUbaldo 12/09/2017 Budesonide 0.5mg/2ML Suspension 1 vial via [...] by mouth every day 90units J45.40 Sushil rAredondoOUbaldo 10/10 - 11/07/2020 Aripiprazole 2mg Tablets take [...] needed maximum daily dose = 2 istop: [id number] 60tabs F33.2 Domitila Arredondo.O. 08/23/2020 - 12/08/2020 Xanax 0.5mg Tablets take one tablet by daily as needed istop [id number] 30tabs Domitila Soliz.O. 08/23/2020 - 12/08/2020 Clonazepam 0.5mg Tablets take one tablet by mouth twice a day as needed maximum daily dose = 2 istop: [id number] 30tabs F33.2 Domitila Arredondo.OUbaldo 08/02/2020 - 08/23/2020 Medications Administered in Office Medication SIG Qnty Indications Ordering Provider Date Injection Promethazine Hci To 50 MG Injection LEATHA Blanca 017 Injection Ketorolac Tromethamine Per 15 MG (Toradol) Injection LEATHA Davey 07/04/2016 Therapeutic, Prophylactic Or Diagnostic Injection Subq/Im Injection LEATHA Davey 07/04/2016 Immunizations CPT Code Status Date Vaccine Lot # [id number] Given 12/27/2020 Influenza Virus Vaccine, Quadrivalent, Slit Virus, Im Use [id number] Vital Signs Date Vital Result Comment 12/27/2020 11:26am BP Systolic 126 mmHg BP Diastolic 78 mmHg Height 58.8 inches 4'10.80" Weight 130.00 lb BMI (Body Mass Index) 26.4 kg/m2 Heart Rate 103 /min Respiratory Rate 18 /min Body Temperature 97.3 F O2 % BldC Oximetry 98 % [place] Body Weight 100 lb 12/13/2020 11:24am BP Systolic 118 mmHg BP Diastolic 78 mmHg Height 58.8 inches 4'10.80" Weight 129.00 lb BMI (Body Mass Index) 26.2 kg/m2 Heart Rate 84 /min Respiratory Rate 18 /min Body Temperature 98.0 F O2 % BldC Oximetry 99 % [place] Body Weight 100 lb Results Test Acquired Date Facility Test Result H/L Range Note Laboratory test finding 08/19/[address] [address] [phone] Total 25(Oh) Vitamin D 31.1 NG/ML Normal 30.0-100. 0 FT4&TSH Panel 08/19/[facility] [address] [place] [address] [phone] Thyroid Stimulating Hormone 3.370 uIU/ML Normal 0. 358-3.740 Free T4 0.85 ng/dL Normal 0.76-1.46 Comprehensive Metabolic Profil 08/19/[address] [address] [phone] Glucose, Fasting 92 mg/dL Normal 70-100 Blood [...] 1.1 Low 1.2-2.2 CBC With Differential 08/19/[address] [address] [phone] White Blood Count 15.0 10 High 4.0-10.0 [...] 36.0-66.0 Lymph % 30.2 % Normal 24.0-44.0 [place] % 5.3 % Normal 2.0-8.0 Eos % 25.8 % High 0.0-3.0 2 Baso % 0.8 % Normal 0.0-1.0 Immature Granulocyte % 0.3 % Normal 0-3.0 Nucleated Red Blood Cell % 0.0 % Normal 0-0 Neutrophils # 5.7 10 Normal 1.5-8.5 Lymph # 4.5 10 Normal 1.5-5.0 [place] # 0.8 10 Normal 0.0-0.8 Eos # 3.9 10 High 0.0-0.5 Baso # 0.1 10 Normal 0.0-0.2 Laboratory test finding 08/19/[address] [address] [phone] Vitamin B12 Level 1341 pg/mL High 247-911 3 Ferritin 67 NG/ML Normal 8-252 Total Iron Binding Capacit 08/19/[address] [id number] [phone] Iron (Fe) 41 g/dL Low 50-170 Total Iron Binding Capacity 393 g/dL Normal 250-450 Percent Saturation 10.4 % Low 13.2-45.0 Anti-Gliadin Antibody 08/19/[address] 7208438 [phone] Unitsiga For Gliadin Iga 2 units Normal 0-19 4 Unitsigg For Gliadin Igg 1 units Normal 0-19 5 Laboratory test finding 08/19/[address] [address] [phone] Tissue Transglutaminase IgG <2 U/mL Normal 0-5 6 Tissue Transglutaminase IgA <2 U/mL Normal 0-3 7 1 Units are mL/min/1.73 m2 Chronic Kidney Disease Staging per NKF: Stage I & II GFR >=60 Normal to Mildly Decreased Stage III GFR 30-59 Moderately Decreased Stage IV GFR 15-29 Severely Decreased Stage V GFR <15 Very Little GFR Left ESRD GFR <15 on ANILINE PRESS WORKER 2 Scan Verified machine result s 3 [...] Positive >9 Performed at: RN - [facility] [address] [id number] Cloth Desizing Range Operator Chief: Viry Marr MD, Phone: [phone] Negative 0 - 3 Weak Positive 4 - 10 Positive >10 . Tissue Transglutaminase (tTG) has been identified as the endomysial antigen. Studies have demonstr- ated that endomysial IgA antibodies have over 99% specificity for gluten sensitive enteropathy. Procedures Date Code Description Status 12/27/2020 42078 Office/Outpatient Established Mo d MDM 30-39 Min Completed 12/13/2020 18896 Office/Outpatient Established Mo d MDM 30-39 Min Completed 12/08/2020 90542 Office/Outpatient Established Mo d MDM 30-39 Min Completed 12/08/2020 60899 Brief Emotional/Beha v Assessment W/ Scoring Doc Per Standard Inst Completed 11/07/2020 23355 Office/Outpatient Established Lo w MDM 20-29 Min Completed 10/10/2020 58761 Office/Outpatient Established Mo d MDM 30-39 Min Completed 10/10/2020 81309 Brief Emotional/Beha v Assessment W/ Scoring Doc Per Standard Inst Completed 08/23/2020 32103 Office/Outpatient Established Mo d MDM 30-39 Min Completed 08/02/2020 15237 Office/Outpatient Established Mo d MDM 30-39 Min Completed Medical Devices Description No Information Available Encounters Type Date Location Provider Dx Diagnosis Office Visit 12/27/2020 11:20a Family [facility] LEATHA Pino F33.1 Major depressive disorder, r ecurrent, moderate 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 G47.00 Insomnia, unspecified Z23 Encounter for immunization Office Visit 12/13/2020 11:30a Family [facility] LEATHA Chisholm F33.1 Major depressive disorder, r ecurrent, moderate 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 Office Visit 12/08/2020 11:20a [facility] LEATHA Chisholm F33.1 Major depressive disorder, r ecurrent, moderate R45.851 Suicidal ideations 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 Office Visit 11/07/2020 10:30a [facility] LEATHA Chisholm F33.1 Major depressive disorder, r ecurrent, moderate G47.00 Insomnia, unspecified G43.901 Migraine, unsp, not intracta ble, with status migrainosus Z79.899 Other manager terminal (current) dr martinez therapy Office Visit 10/10/2020 1:15p [facility] LEATHA Chisholm D50.9 Iron deficiency anemia, unsp ecified K58.0 Irritable bowel syndrome wit h diarrhea J45.40 Moderate persistent asthma, uncomplicated F43.22 Adjustment disorder with anx iety F33.2 Major depressv disorder, rec urrent severe w/o psych features Office Visit 08/23/2020 8:40a [facility] Audrey Morrison D.O. F33.2 Major depressv disorder, rec urrent severe w/o psych features G47.00 Insomnia, unspecified G43.901 Migraine, unsp, not intracta ble, with status migrainosus F41.9 Anxiety disorder, unspecifie d E55.9 Vitamin D deficiency, unspec ified J45.40 Moderate persistent asthma, uncomplicated D50.9 Iron deficiency anemia, unsp ecified Office Visit 08/02/2020 8:40a [facility] Audrey Morrison D.O. F33.2 Major depressv [...] 01/27/2021 9:40 am - LEATHA Chisholm at [facility] Functional Status Description No Information Available Mental Status Description No Information Available Referrals Refer to Dr Reason for Referral Status Appt Date James Aldana D.O. PHD Laurie has depression with mood disorder and some active thoughts of SI without a plan. Please evaluate and treat. Sent 01/11/2021 [facility] [address] [place] [address] [phone]
--- OUTSIDE RECORDS SUMMARY | 2020-12-28 22:26 | CCD | Continuity of Care Document ---
Author Author Laurie LUCAS [place] [address] Phone [phone] Care Team Providers Care Resident Services Manager Name Role Phone Audrey Morrison D.O. AUTM [phone] Problems Active Problems Provider Date Uncomplicated moderate [...] SIG Qnty Indications Ordering Provide r Date Xanax 0.5mg Tablets take one tablet by daily as needed istop [id number] 30tabs Audrey meyers DUbaldoOUbaldo 08/23/2020 Clonazepam 1mg Tablets take one tablet by mouth twice a day as needed maximum daily dose = 2 istop: [id number] 60tabs F33.2 Sushil ArredondoOUbaldo 08/23/2020 Venlafaxine HCL ER 150mg Caps ER 2 [...] breath or wheezing 24gm Sushil ArredondoOUbaldo 01/24/2018 Budesonide 0.5mg/2ML Suspension 1 vial via nebulizer two times a day 1box J06.9 Sushil ArredondoOUbaldo 12/09/2017 Ipratropium [place]/Albuterol Sulfate 0.5-2.5(3)mg/3ML Solution 4 x a day as needed 180units J06.9 Sushil GrayOUbaldo 12/09/2017 Dicyclomine HCL 10mg Capsules Take 2 Capsules Every Evening 180caps Sushil ArredondoO Ubaldo 02/19/2017 Zofran 4mg Tablets 1 tablet every 6h as needed nausea 30tabs Sushil ArredondoOUbaldo Singulair 10mg Tablets 1 by mouth every day Unknown Dupixent 300mg/2ML Soln Prefill Syringe Wendie Davis [...] Night AT Bedtime 90tabs Sushil ArredondoO . Multivitamin Adult Tablets 1 by mouth every [...] mouth every day 90tabs D50.9 Sushil ArredondoO. 08/23 - 09/20/2020 Clonazepam 0.5mg Tablets take one tablet by mouth twice a day as needed maximum daily dose = 2 istop: [id number] 30tabs F33.2 Sushil ArredondoO. 08/02/2020 - 08/23/2020 Medications Administered in Office [...] F O2 % BldC Oximetry 95 % [place] Body Weight 100 lb 10/10/2020 1:25pm BP Systolic 120 mmHg BP Diastolic 78 mmHg Height 58.8 inches 4'10.80" Weight 133.38 lb BMI (Body Mass Index) 27.1 kg/m2 Heart Rate 101 /min Respiratory Rate 14 /min Body Temperature 98.4 F O2 % BldC Oximetry 98 % [place] Body Weight 100 lb Results Test Acquired Date Facility Test Result H/L Range Note Laboratory test finding 08/19/[address] [address] [phone] Total 25(Oh) Vitamin D 31.1 NG/ML Normal 30.0-100. 0 FT4&TSH Panel 08/19/2020 [facility] [address] [place] [address] [phone] Thyroid Stimulating Hormone 3.370 uIU/ML Normal 0. 358-3.740 Free T4 0.85 ng/dL Normal 0.76-1.46 Comprehensive Metabolic Profil 08/19/[address] [address] [phone] Glucose, Fasting 92 mg/dL Normal 70-100 Blood [...] 1.1 Low 1.2-2.2 CBC With Differential 08/19/[address] [address] [phone] White Blood Count 15.0 10 High 4.0-10.0 [...] 36.0-66.0 Lymph % 30.2 % Normal 24.0-44.0 [place] % 5.3 % Normal 2.0-8.0 Eos % 25.8 % High 0.0-3.0 2 Baso % 0.8 % Normal 0.0-1.0 Immature Granulocyte % 0.3 % Normal 0-3.0 Nucleated Red Blood Cell % 0.0 % Normal 0-0 Neutrophils # 5.7 10 Normal 1.5-8.5 Lymph # 4.5 10 Normal 1.5-5.0 [place] # 0.8 10 Normal 0.0-0.8 Eos # 3.9 10 High 0.0-0.5 Baso # 0.1 10 Normal 0.0-0.2 Laboratory test finding 08/19/[address] [address] [phone] Vitamin B12 Level 1341 pg/mL High 247-911 3 Ferritin 67 NG/ML Normal 8-252 Total Iron Binding Capacit 08/19/[address] [place] [address] [phone] Iron (Fe) 41 g/dL Low 50-170 Total Iron Binding Capacity 393 g/dL Normal 250-450 Percent Saturation 10.4 % Low 13.2-45.0 Anti-Gliadin Antibody 08/19/[address] [address] [phone] Unitsiga For Gliadin Iga 2 units Normal 0-19 4 Unitsigg For Gliadin Igg 1 units Normal 0-19 5 Laboratory test finding 08/19/[address] [address] [phone] Tissue Transglutaminase IgG <2 U/mL Normal 0-5 6 Tissue Transglutaminase IgA <2 U/mL Normal 0-3 7 1 Units are mL/min/1.73 m2 Chronic Kidney Disease Staging per NKF: Stage I & II GFR >=60 Normal to Mildly Decreased Stage III GFR 30-59 Moderately Decreased Stage IV GFR 15-29 Severely Decreased Stage V GFR <15 Very Little GFR Left ESRD GFR <15 on RN LABOR DELIVERY 2 Scan Verified machine result s 3 [...] Positive >9 Performed at: RN - [facility] [address] [id number] Supervisor Fur Dressing: Viry Marr MD, Phone: [phone] 7 Negative 0 - 3 Weak Positive 4 - 10 Positive >10 . Tissue Transglutaminase (tTG) has been identified as the endomysial antigen. Studies have demonstr- ated that endomysial IgA antibodies have over 99% specificity for gluten sensitive enteropathy. Procedures Date Code Description Status 11/07/2020 98844 Office/Outpatient Established Lo w MDM 20-29 Min Completed 10/10/2020 57655 Office/Outpatient Established Mo d MDM 30-39 Min Completed 10/10/2020 35114 Brief Emotional/Beha v Assessment W/ Scoring Doc Per Standard Inst Completed 08/23/2020 60007 Office/Outpatient Established Mo d MDM 30-39 Min Completed 08/02/2020 22869 Office/Outpatient Established Mo d MDM 30-39 Min Completed Medical Devices Description No Information Available Encounters Type Date Location Provider Dx Diagnosis Office Visit 11/07/2020 10:30a [facility] LEATHA Chisholm F33.1 Major depressive disorder, r ecurrent, moderate G47.00 Insomnia, unspecified G43.901 Migraine, unsp, not intracta ble, with status migrainosus Z79.899 Other senior living (current) dr martinez therapy Office Visit 10/10/2020 1:15p [facility] LEATHA Chisholm D50.9 Iron deficiency anemia, unsp ecified K58.0 Irritable bowel syndrome wit h diarrhea J45.40 Moderate persistent asthma, uncomplicated F43.22 Adjustment disorder with anx iety F33.2 Major depressv disorder, rec urrent severe w/o psych features Office Visit 08/23/2020 8:40a [facility] Domitila Arredondo.Maryam F33.2 Major depressv disorder, rec urrent severe w/o psych features G47.00 Insomnia, unspecified G43.901 Migraine, unsp, not intracta ble, with status migrainosus F41.9 Anxiety disorder, unspecifie d E55.9 Vitamin D deficiency, unspec ified J45.40 Moderate persistent asthma, uncomplicated D50.9 Iron deficiency anemia, unsp ecified Office Visit 08/02/2020 8:40a [facility] Domitila Arredondo.John. F33.2 Major depressv disorder, rec urrent severe w/o psych features G47.00 Insomnia, unspecified G43.901 Migraine, unsp, not intracta ble, with status migrainosus F41.9 Anxiety disorder, unspecifie d Z13.29 Encounter for screening for oth suspected endocrine disorder E55.9 Vitamin D deficiency, unspec ified Assessments Date Code Description Provider 11/07/2020 F33.1 Major depressive disorder, recur rent, moderate LEATHA Chisholm 11/07/2020 G47.00 Insomnia, unspecified LEATHA Arreaga 11/07/2020 G43.901 Migraine, unspecifie d, not intractable, with status migrainosus LEATHA Chisholm 11/07/2020 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 08/23/2020 F41.9 Anxiety disorder, unspecified Terrence Zambrano-Shaggy, D.O. 08/23/2020 E55.9 Vitamin D deficiency, unspecifie d Audrey Morrison, D.O. 08/23/2020 J45.40 Moderate persistent asthma, unco mplicated Audrey Bautistaber, D.O. 08/23/2020 D50.9 Iron deficiency anemia, unspecif ied Audrey Morrison, D.O. 08/02/2020 F33.2 Major depressive dis order, recurrent severe without psychotic features Audrey Morrison, D.O. 08/02/2020 G47.00 Insomnia, unspecified Audrey Pikeber, D.O. 08/02/2020 G43.901 Migraine, unspecifie d, not intractable, with status migrainosus Audreykoffi Morrison D.O. 08/02/2020 F41.9 Anxiety disorder, unspecified Terrence Morrison D.O. 08/02/2020 Z13.29 Encounter for screen ing for other suspected endocrine disorder Audrey Morrison D.O. 08/02/2020 E55.9 Vitamin D deficiency, unspecifie d Audrey Morrison D.O. Plan of Treatment Future Appointment(s):* 12/08/2020 11:20 am - LEATHA Chisholm at [facility] Functional Status Description No Information Available Mental Status Description No Information Available Referrals Description No Information Available
--- OUTSIDE RECORDS SUMMARY | 2020-12-28 22:26 | CCD | Continuity of Care Document ---
Author Author Laurie LUCAS Organization [place] [address] Phone [phone] Care Team Providers Care Telecom Field Technician Name Role Phone Audrey Morrison D.O. AUTM [...] belt Allergies, Adverse Reactions, Alerts Active Allergies Reaction Severity Comments Date Cefaclor Urticaria 07/04/2016 Doxycycline Urticaria 07/04/2016 Sulfa Nausea and Vomiting 07/05/19 17 Ambien Sleep walking 07/18/2016 Medications Active Medications SIG Qnty Indications Ordering Provide r Date Aripiprazole 2mg Tablets take one tablet by mouth once a night. 30tabs F43.22 Audrey Morrison D.O Ubaldo 10/10/2020 Singulair 5mg Chewtabs 1 by mouth every day 90units J45.40 Audrey Morrison D.OUbaldo 10/10 Ferrous Gluconate 324(38Fe) mg Tab lets 1 by mouth every day 90tabs D50.9 Audrey Morrison D.OUbaldo Clonazepam 1mg Tablets take one tablet by mouth twice a day as needed maximum daily dose = 2 istop: [id number] 60tabs F33.2 Sushil ArredondoO. 08/23/2020 Xanax 0.5mg Tablets take one tablet by daily as needed istop [id number] 30tabs Sushil SolizOUbaldo 08/23/2020 Venlafaxine HCL ER 150mg Caps ER 2 4HR 1 by mouth every day 90caps F33.2 Domitila Arredondo.OUbaldo 08/02 Topiramate 100mg Tablets Take 1 Tablet Twice A Day 180tabs Sushil ArredondoOUbaldo 06/13 Drospirenone-Ethinyl Estradiol 3-0.02mg Tablets Take 1 Tablet Daily 84tabs Sushil ArredondoOUbaldo 06/02/2018 Rizatriptan Benzoate 10mg Tablets Take 1 Tablet AT The Start Of Headache And Repeat In 2 Hours If Needed 14tabs Sushil ArredondoOUbaldo 03/18/2018 Metoclopramide HCL 10mg Tablets take one tablet by mouth every six hours as needed for nausea 180tabs Sushil ClintonOUbaldo 03/18/2018 Ventolin HFA 108(90Base) mcg/Act A erosol 2 puffs every 4 hours shortness of breath or wheezing 24gm Sushil ArredondoOUbaldo 01/24/2018 Ipratropium [place]/Albuterol Sulfate 0.5-2.5(3)mg/3ML Solution 4 x a day as needed 180units J06.9 Sushil GrayOUbaldo 12/09/2017 Budesonide 0.5mg/2ML Suspension 1 vial via nebulizer two times a day 1box J06.9 Sushil ArredondoOUbaldo 12/09/2017 Dicyclomine HCL 10mg Capsules Take 2 Capsules Every Evening 180caps Sushil ArredondoO Ubaldo 02/19/2017 Dupixent 300mg/2ML Soln Prefill Syringe Wendie Davis MD B Complex Tablets 1 by mo uth every day Unknown Advair Diskus 100-50mcg/Dose Aeros ol inhale one puff by mouth twice a day not covered Unknown Vitamin D3 50mcg (2000 Ut) Capsule s 1 by mouth every day Unknown Vitamin B12 500mcg Tablets 1 by mouth every day Unknown Flovent HFA 220mcg/Act Aerosol two puffs twice a day as needed Unknown Omeprazole 20mg Capsules DR Take 1 Capsule Daily 90caps Domitila Arredondo.O. Citrucel 500mg Tablets 1 tab by mouth twice a day Unknown Trazodone HCL 100mg Tablets Take 1 Tablet Every Night AT Bedtime 90tabs Sushil ArredondoO . Zofran 4mg Tablets 1 tablet every 6h as needed nausea 30tabs Domitila Arredondo.O. Multivitamin Adult Tablets 1 by mouth every day Unknown Magnesium 400mg Tablets one tablet by mouth once per day 90tabs Domitila Arredondo.O. Probiotic Capsules 1 caps in th in the morning Unknown Cristina Allergy 180mg Tablets take 1 tab by mouth daily Unknown History Medications Ferrous Sulfate 325(65Fe) mg Table ts 1 by mouth every day 90tabs D50.9 Sushil ArredondoO. 08/23 - 09/20/2020 Clonazepam 0.5mg Tablets take one tablet by mouth twice a day as needed maximum daily dose = 2 istop: [id number] 30tabs F33.2 Sushil ArredondoO. 08/02/2020 - 08/23/2020 Medications Administered in Office Medication SIG Qnty Indications Ordering Provider Date Injection Promethazine Hci To 50 MG Injection LEATHA Blanca 017 Injection Ketorolac Tromethamine Per 15 MG (Toradol) Injection LEATHA Davey 07/04/2016 Therapeutic, Prophylactic Or Diagnostic Injection Subq/Im Injection LEATHA Davey 07/04/2016 Immunizations Description No Information Available Vital Signs Date Vital Result Comment 10/10/2020 1:25pm BP Systolic 120 mmHg BP Diastolic 78 mmHg Height 58.8 inches 4'10.80" Weight 133.38 lb BMI (Body Mass Index) 27.1 kg/m2 Heart Rate 101 /min Respiratory Rate 14 /min Body Temperature 98.4 F O2 % BldC Oximetry 98 % [place] Body Weight 100 lb 08/23/2020 8:46am BP Systolic 118 mmHg BP Diastolic 80 mmHg Height 58.8 inches 4'10.80" Weight 134.00 lb BMI (Body Mass Index) 27.2 kg/m2 Heart Rate 85 /min Respiratory Rate 16 /min Body Temperature 97.2 F O2 % BldC Oximetry 99 % [place] Body Weight 100 lb Results Test Acquired Date Facility Test Result H/L Range Note Laboratory test finding 08/19/[address] [id number] [phone] Total 25(Oh) Vitamin D 31.1 NG/ML Normal 30.0-100. 0 FT4&TSH Panel 08/19/2020 [facility] nter [address] [place] [address] [phone] Thyroid Stimulating Hormone 3.370 uIU/ML Normal 0. 358-3.740 Free T4 0.85 ng/dL Normal 0.76-1.46 Comprehensive Metabolic Profil 08/19/[address] [id number] [phone] Glucose, Fasting 92 mg/dL Normal 70-100 Blood [...] 1.1 Low 1.2-2.2 CBC With Differential 08/19/[address] [address] [phone] White Blood Count 15.0 10 High 4.0-10.0 [...] 36.0-66.0 Lymph % 30.2 % Normal 24.0-44.0 [place] % 5.3 % Normal 2.0-8.0 Eos % 25.8 % High 0.0-3.0 2 Baso % 0.8 % Normal 0.0-1.0 Immature Granulocyte % 0.3 % Normal 0-3.0 Nucleated Red Blood Cell % 0.0 % Normal 0-0 Neutrophils # 5.7 10 Normal 1.5-8.5 Lymph # 4.5 10 Normal 1.5-5.0 [place] # 0.8 10 Normal 0.0-0.8 Eos # 3.9 10 High 0.0-0.5 Baso # 0.1 10 Normal 0.0-0.2 Laboratory test finding 08/19/[address] [address] [phone] Vitamin B12 Level 1341 pg/mL High 247-911 3 Ferritin 67 NG/ML Normal 8-252 Total Iron Binding Capacit 08/19/2020 [facility] [address] [place] [address] [phone] Iron (Fe) 41 g/dL Low 50-170 Total Iron Binding Capacity 393 g/dL Normal 250-450 Percent Saturation 10.4 % Low 13.2-45.0 Anti-Gliadin Antibody 08/19/[address] [address] [phone] Unitsiga For Gliadin Iga 2 units Normal 0-19 4 Unitsigg For Gliadin Igg 1 units Normal 0-19 5 Laboratory test finding 08/19/[address] [address] [phone] Tissue Transglutaminase IgG <2 U/mL Normal 0-5 6 Tissue Transglutaminase IgA <2 U/mL Normal 0-3 7 1 Units are mL/min/1.73 m2 Chronic Kidney Disease Staging per NKF: Stage I & II GFR >=60 Normal to Mildly Decreased Stage III GFR 30-59 Moderately Decreased Stage IV GFR 15-29 Severely Decreased Stage V GFR <15 Very Little GFR Left ESRD GFR <15 on [employer] 2 Scan Verified machine result s 3 [...] Positive >9 Performed at: RN - [facility] [address] [id number] City Letter Carrier: Viry Marr MD, Phone: [phone] Negative 0 - 3 Weak Positive 4 - 10 Positive >10 . Tissue Transglutaminase (tTG) has been identified as the endomysial antigen. Studies have demonstr- ated that endomysial IgA antibodies have over 99% specificity for gluten sensitive enteropathy. Procedures Date Code Description Status 10/10/2020 36830 Office/Outpatient Established Mo d MDM 30-39 Min Completed 10/10/2020 54098 Brief Emotional/Beha v Assessment W/ Scoring Doc Per Standard Inst Completed 08/23/2020 41341 Office/Outpatient Established Mo d MDM 30-39 Min Completed 08/02/2020 55715 Office/Outpatient Established Mo d MDM 30-39 Min Completed Medical Devices Description No Information Available Encounters Type Date Location Provider Dx Diagnosis Office Visit 10/10/2020 1:15p [facility] LEATHA Pino D50.9 Iron deficiency anemia, unsp ecified K58.0 [...] 08/02/2020 8:40a [facility] Audrey Morrison D.OUbaldo F33.2 Major depressv disorder, rec urrent severe w/o psych features G47.00 Insomnia, unspecified G43.901 Migraine, unsp, not intracta ble, with status migrainosus F41.9 Anxiety disorder, unspecifie d Z13.29 Encounter for screening for oth suspected endocrine disorder E55.9 Vitamin D deficiency, unspec ified Assessments Date Code Description Provider 10/10/2020 D50.9 Iron deficiency anemia, unspecif ied [...] D.O. 08/23/2020 F41.9 Anxiety disorder, unspecified Terrence Morrison, D.O. 08/23/2020 E55.9 Vitamin D deficiency, unspecifie [...] D.O. 08/02/2020 F41.9 Anxiety disorder, unspecified Terrence Norwoodber, D.O. 08/02/2020 Z13.29 Encounter for screen ing for other suspected endocrine disorder Audrey Morrison, D.O. 08/02/2020 E55.9 Vitamin D deficiency, unspecifie d Audrey Morrison, D.O. Plan of Treatment Future Appointment(s):* 10/26/2020 8:00 am - LEATHA Chisholm at [facility] 10/10/2020 - LEATHA Chisholm* D50.9 Iron deficiency anemia, unspecified* Comments:* Continue with iron supplement * K58.0 Irritable bowel syndrome with diarrhea* Comments:* Admittedly diet has been bad and partially contributes to diarrhea. * J45.40 Moderate persistent asthma, uncomplicated* New Medication:* Singulair 5 mg - 1 by mouth every day * Comments:* Reduce your Singulair from 10 mg to 5 mg to see if this helps with your irritability but still controls your asthma / allergies well. * F43.22 Adjustment disorder with anxiety* New Medication:* Aripiprazole 2 mg - take one tablet by mouth once a night. * Comments:* We will start Abilify to help with your mood disorder * Follow up:* 2 weeks * F33.2 Major depressive disorder, recurrent severe without psychotic features* Comments:* Feeling better on Effexor 150 mg. Since starting Abilify please try to reduce amount of Klonopin and xanax. Functional Status Description No Information Available Mental Status Description No Information Available Referrals Description No Information Available
--- OUTSIDE RECORDS SUMMARY | 2020-12-28 22:26 | CCD ---
Continuity of Care Document (CCD) Created on: 11/07/2020 Laurie Johns External Reference #: [id number] : [id number] Sex: Female Author Author Laurie LUCAS [place] [address] Phone [phone] Care Team Providers Care Pickle Processor Name Role Phone Audrey Morrison D.O. AUTM [...] one tablet by daily as needed istop [id number] 30tabs Audrey meyers DUbaldoOUbaldo 08/23/2020 Clonazepam 1mg Tablets take one tablet by mouth twice a day as needed maximum daily dose = 2 istop: [id number] 60tabs F33.2 Sushil ArredondoOUbaldo 08/23/2020 Venlafaxine HCL [...] day 1box J06.9 Sushil ArredondoOUbaldo 12/09/2017 Ipratropium [place]/Albuterol Sulfate 0.5-2.5(3)mg/3ML Solution 4 x a day [...] needed maximum daily dose = 2 istop: [id number] 30tabs F33.2 Sushil ArredondoO. 08/02/2020 - 08/23/2020 [...] F O2 % BldC Oximetry 95 % [place] Body Weight 100 lb 10/10/2020 1:25pm BP Systolic 120 mmHg BP Diastolic 78 mmHg Height 58.8 inches 4'10.80" Weight 133.38 lb BMI (Body Mass Index) 27.1 kg/m2 Heart Rate 101 /min Respiratory Rate 14 /min Body Temperature 98.4 F O2 % BldC Oximetry 98 % [place] Body Weight 100 lb Results Test Acquired Date Facility Test Result H/L Range Note Laboratory test finding 08/19/[address] [address] [phone] Total 25(Oh) Vitamin D 31.1 NG/ML Normal 30.0-100. 0 FT4&TSH Panel 08/19/2020 [facility] nter [address] [place] [address] [phone] Thyroid Stimulating Hormone 3.370 uIU/ML Normal 0. 358-3.740 Free T4 0.85 ng/dL Normal 0.76-1.46 Comprehensive Metabolic Profil 08/19/[address] [address] [phone] Glucose, Fasting 92 mg/dL Normal 70-100 Blood [...] 1.1 Low 1.2-2.2 CBC With Differential 08/19/[address] [address] [phone] White Blood Count 15.0 10 High 4.0-10.0 [...] 36.0-66.0 Lymph % 30.2 % Normal 24.0-44.0 [place] % 5.3 % Normal 2.0-8.0 Eos % 25.8 % High 0.0-3.0 2 Baso % 0.8 % Normal 0.0-1.0 Immature Granulocyte % 0.3 % Normal 0-3.0 Nucleated Red Blood Cell % 0.0 % Normal 0-0 Neutrophils # 5.7 10 Normal 1.5-8.5 Lymph # 4.5 10 Normal 1.5-5.0 [place] # 0.8 10 Normal 0.0-0.8 Eos # 3.9 10 High 0.0-0.5 Baso # 0.1 10 Normal 0.0-0.2 Laboratory test finding 08/19/[address] [address] [phone] Vitamin B12 Level 1341 pg/mL High 247-911 3 Ferritin 67 NG/ML Normal 8-252 Total Iron Binding Capacit 08/19/[address] [place] [address] [phone] Iron (Fe) 41 g/dL Low 50-170 Total Iron Binding Capacity 393 g/dL Normal 250-450 Percent Saturation 10.4 % Low 13.2-45.0 Anti-Gliadin Antibody 08/19/[address] [address] [phone] Unitsiga For Gliadin Iga 2 units Normal 0-19 4 Unitsigg For Gliadin Igg 1 units Normal 0-19 5 Laboratory test finding 08/19/[address] [address] [phone] Tissue Transglutaminase IgG <2 U/mL Normal 0-5 6 Tissue Transglutaminase IgA <2 U/mL Normal 0-3 7 1 Units are mL/min/1.73 m2 Chronic Kidney Disease Staging per NKF: Stage I & II GFR >=60 Normal to Mildly Decreased Stage III GFR 30-59 Moderately Decreased Stage IV GFR 15-29 Severely Decreased Stage V GFR <15 Very Little GFR Left ESRD GFR <15 on PHOTOVOLTAIC FABRICATION TECHNICIAN 2 Scan Verified machine result s 3 [...] Positive >9 Performed at: RN - [facility] [address] [id number] Stratigraphy Teacher: Viry Marr MD, Phone: [phone] Negative 0 - 3 Weak Positive 4 - 10 Positive >10 . Tissue Transglutaminase (tTG) has been identified as the endomysial antigen. Studies have demonstr- ated that endomysial IgA antibodies have over 99% specificity for gluten sensitive enteropathy. Procedures Date Code Description Status 10/10/2020 58449 Office/Outpatient Established Mo d MDM 30-39 Min Completed 10/10/2020 37686 Brief Emotional/Beha v Assessment W/ Scoring Doc Per Standard Inst Completed 08/23/2020 76929 Office/Outpatient Established Mo d MDM 30-39 Min Completed 08/02/2020 89191 Office/Outpatient Established Mo d MDM 30-39 Min Completed Medical Devices Description No Information Available Encounters Type Date Location Provider Dx Diagnosis Office Visit 10/10/2020 1:15p [facility] LEATHA Pino D50.9 Iron deficiency anemia, unsp ecified K58.0 Irritable bowel syndrome wit h diarrhea J45.40 Moderate persistent asthma, uncomplicated F43.22 Adjustment disorder with anx iety F33.2 Major depressv disorder, rec urrent severe w/o psych features Office Visit 08/23/2020 8:40a [facility] Audrey Morrison D.O. F33.2 Major depressv disorder, rec urrent severe w/o psych features G47.00 Insomnia, unspecified G43.901 Migraine, unsp, not intracta ble, with status migrainosus F41.9 Anxiety disorder, unspecifie d E55.9 Vitamin D deficiency, unspec ified J45.40 Moderate persistent asthma, uncomplicated D50.9 Iron deficiency anemia, unsp ecified Office Visit 08/02/2020 8:40a [facility] Sushil ArredondoOUbaldo F33.2 Major depressv disorder, rec urrent severe [...] status migrainosus LEATHA Chisholm 11/07/2020 Z79.899 Other usp (current) drug t herapy LEATHA Chisholm 10/10/2020 [...] Morrison, D.O. 08/23/2020 G47.00 Insomnia, unspecified Audrey Rose anoFrederickShaggy, D.O. 08/23/2020 G43.901 Migraine, unspecifie d, not intractable, with status migrainosus Audrey Zambrano-Shaggy, D.O. 08/23/2020 F41.9 Anxiety disorder, unspecified Terrence Zambrano-Shaggy, D.O. 08/23/2020 E55.9 Vitamin D deficiency, unspecifie d Audrey Morrison, D.O. 08/23/2020 J45.40 Moderate persistent asthma, unco mplicated Audrey Coon, D.O. 08/23/2020 D50.9 Iron deficiency anemia, unspecif ied Audrey Morrison, D.O. 08/02/2020 F33.2 Major depressive dis order, recurrent severe without psychotic features Audrey Morrison, D.O. 08/02/2020 G47.00 Insomnia, unspecified Audrey Rose ano-Shaggy, D.O. 08/02/2020 G43.901 Migraine, unspecifie d, not intractable, with status migrainosus Audrey Zambrano-Shaggy, D.O. 08/02/2020 F41.9 Anxiety disorder, unspecified Terrence Zambrano-Shaggy, D.O. 08/02/2020 Z13.29 Encounter for screen ing for other suspected endocrine disorder Audrey Morrison, D.O. 08/02/2020 E55.9 Vitamin D deficiency, unspecifie d Audrey Morrison, D.O. Plan of Treatment Future Appointment(s):* 12/08/2020 11:20 am - LEATHA Chisholm at [facility] 11/07/2020 - LEATHA Chisholm* F33.1 Major depressive disorder, recurrent, moderate* Comments:* Abilify not tolerated. Continue with your better recognition of your triggers. Continue with your Effexor, Xanax, Klonopin, and other behavioral coping mechanisms. * Follow up:* 1 month * G47.00 Insomnia, unspecified* Comments:* Overall sleeping well with current medications. 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
--- OUTSIDE RECORDS SUMMARY | 2020-12-28 22:26 | CCD | Continuity of Care Document ---
Author Author Laurie LUCAS [place] [address] Phone [phone] Care Team Providers Care Induction Machine Operator Name Role Phone Audrey Morrison D.O. AUTM James Aldana D.O. PHD AUTM [phone] Problems Active Problems Provider Date Uncomplicated moderate [...] Indications Ordering Provide r Date Quetiapine Fumarate 200mg Tablets Take one tablet by mouth one hour before bed 30tabs Audrey Monroe D.O. 12/13/2020 Alprazolam 0.5mg Tablets take one tablet by mouth every 8 hours as needed 42tabs F06.31 Audrey bland D.O. 12/08/2020 Montelukast Sodium 10mg Tablets Take 1 [...] or wheezing 24gm Sushil ArredondoOUbaldo 01/24/2018 Ipratropium [place]/Albuterol Sulfate 0.5-2.5(3)mg/3ML Solution 4 x a day as needed 180units J06.9 Sushil GrayOUbaldo 12/09/2017 Budesonide 0.5mg/2ML Suspension 1 vial via nebulizer two times a day 1box J06.9 Sushil ArredondoOUbaldo 12/09/2017 Dicyclomine HCL 10mg Capsules Take 2 Capsules Every Evening 180caps Domitila Arredondo.O Ubaldo 02/19/2017 Dupixent 300mg/2ML Soln Prefill Syringe [...] Sushil YoungO. 12/13/2020 - 12/13/2020 Quetiapine Fumarate 100mg Tablets Take one tablet [...] D50.9 Sushil ArredondoO. 08/23 - 09/20/2020 Clonazepam 1mg Tablets take one tablet by mouth twice a day as needed maximum daily dose = 2 istop: [id number] 60tabs F33.2 Audrey Morrison D.O. 08/23/2020 - 12/08/2020 Xanax 0.5mg Tablets take one tablet by daily as needed istop [id number] 30tabs Sushil SolizOUbaldo 08/23/2020 - 12/08/2020 Clonazepam 0.5mg Tablets take one tablet by mouth twice a day as needed maximum daily dose = 2 istop: [id number] 30tabs F33.2 Audrey Morrison D.O. 08/02/2020 - 08/23/2020 Medications Administered in Office Medication SIG Qnty Indications Ordering Provider Date Injection Promethazine Hci To 50 MG Injection LEATHA Blanca 017 Injection Ketorolac Tromethamine Per 15 MG (Toradol) Injection LEATHA Davey 07/04/2016 Therapeutic, Prophylactic Or Diagnostic Injection Subq/Im Injection LEATHA Davey 07/04/2016 Immunizations Description No Information Available Vital Signs Date Vital Result Comment 12/13/2020 11:24am BP Systolic 118 mmHg BP Diastolic 78 mmHg Height 58.8 inches 4'10.80" Weight 129.00 lb BMI (Body Mass Index) 26.2 kg/m2 Heart Rate 84 /min Respiratory Rate 18 /min Body Temperature 98.0 F O2 % BldC Oximetry 99 % [place] Body Weight 100 lb 11/07/2020 10:45am BP Systolic 118 mmHg BP Diastolic 78 mmHg Height 58.8 inches 4'10.80" Weight 129.50 lb BMI (Body Mass Index) 26.3 kg/m2 Heart Rate 95 /min Respiratory Rate 18 /min Body Temperature 97.9 F O2 % BldC Oximetry 95 % [place] Body Weight 100 lb Results Test Acquired Date Facility Test Result H/L Range Note Laboratory test finding 08/19/2020 [place] [id number] [phone] Total 25(Oh) Vitamin D 31.1 NG/ML Normal 30.0-100. 0 FT4&TSH Panel 08/19/2020 [facility] nter [address] [place] [address] [phone] Thyroid Stimulating Hormone 3.370 uIU/ML Normal 0. 358-3.740 Free T4 0.85 ng/dL Normal 0.76-1.46 Comprehensive Metabolic Profil 08/19/[address] [address] [phone] Glucose, Fasting 92 mg/dL Normal 70-100 Blood [...] 1.1 Low 1.2-2.2 CBC With Differential 08/19/[address] [address] [phone] White Blood Count 15.0 10 High 4.0-10.0 [...] 36.0-66.0 Lymph % 30.2 % Normal 24.0-44.0 [place] % 5.3 % Normal 2.0-8.0 Eos % 25.8 % High 0.0-3.0 2 Baso % 0.8 % Normal 0.0-1.0 Immature Granulocyte % 0.3 % Normal 0-3.0 Nucleated Red Blood Cell % 0.0 % Normal 0-0 Neutrophils # 5.7 10 Normal 1.5-8.5 Lymph # 4.5 10 Normal 1.5-5.0 [place] # 0.8 10 Normal 0.0-0.8 Eos # 3.9 10 High 0.0-0.5 Baso # 0.1 10 Normal 0.0-0.2 Laboratory test finding 08/19/[address] [address] [phone] Vitamin B12 Level 1341 pg/mL High 247-911 3 Ferritin 67 NG/ML Normal 8-252 Total Iron Binding Capacit 08/19/[address] [address] [phone] Iron (Fe) 41 g/dL Low 50-170 Total Iron Binding Capacity 393 g/dL Normal 250-450 Percent Saturation 10.4 % Low 13.2-45.0 Anti-Gliadin Antibody 08/19/[address] [address] [phone] Unitsiga For Gliadin Iga 2 units Normal 0-19 4 Unitsigg For Gliadin Igg 1 units Normal 0-19 5 Laboratory test finding 08/19/[address] [address] [phone] Tissue Transglutaminase IgG <2 U/mL Normal 0-5 6 Tissue Transglutaminase IgA <2 U/mL Normal 0-3 7 1 Units are mL/min/1.73 m2 Chronic Kidney Disease Staging per NKF: Stage I & II GFR >=60 Normal to Mildly Decreased Stage III GFR 30-59 Moderately Decreased Stage IV GFR 15-29 Severely Decreased Stage V GFR <15 Very Little GFR Left ESRD GFR <15 on ADMIN PROG COORD 2 Scan Verified machine result s 3 [...] Positive >9 Performed at: RN - [facility] [address] [id number] Windshield Wiper Repairer: Viry Marr MD, Phone: [phone] Negative 0 - 3 Weak Positive 4 - 10 Positive >10 . Tissue Transglutaminase (tTG) has been identified as the endomysial antigen. Studies have demonstr- ated that endomysial IgA antibodies have over 99% specificity for gluten sensitive enteropathy. Procedures Date Code Description Status 12/13/2020 91404 Office/Outpatient Established Mo d MDM 30-39 Min Completed 12/08/2020 85970 Office/Outpatient Established Mo d MDM 30-39 Min Completed 12/08/2020 48906 Brief Emotional/Beha v Assessment W/ Scoring Doc Per Standard Inst Completed 11/07/2020 18734 Office/Outpatient Established Lo w MDM 20-29 Min Completed 10/10/2020 12429 Office/Outpatient Established Mo d MDM 30-39 Min Completed 10/10/2020 52233 Brief Emotional/Beha v Assessment W/ Scoring Doc Per Standard Inst Completed 08/23/2020 64104 Office/Outpatient Established Mo d MDM 30-39 Min Completed 08/02/2020 87400 Office/Outpatient Established Mo d MDM 30-39 Min Completed Medical Devices Description No Information Available Encounters Type Date Location Provider Dx Diagnosis Office Visit 12/13/2020 11:30a [facility] LEATHA Chisholm F33.1 Major depressive disorder, r ecurrent, moderate 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 Office Visit 12/08/2020 11:20a [facility] LEATHA Chisholm F33.1 Major depressive disorder, r ecurrent, moderate R45.851 Suicidal ideations 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 Office Visit 11/07/2020 10:30a [facility] LEATHA Chisholm F33.1 Major depressive disorder, r ecurrent, moderate G47.00 Insomnia, unspecified G43.901 Migraine, unsp, not intracta ble, with status migrainosus Z79.899 Other alf (current) dr martinez therapy Office Visit 10/10/2020 1:15p [facility] LEATHA Chisholm D50.9 Iron deficiency anemia, unsp ecified K58.0 Irritable bowel syndrome wit h diarrhea J45.40 Moderate persistent asthma, uncomplicated F43.22 Adjustment disorder with anx iety F33.2 Major depressv disorder, rec urrent severe w/o psych features Office Visit 08/23/2020 8:40a [facility] Audrey Morrison D.O. F33.2 Major depressv disorder, rec urrent severe w/o psych features G47.00 Insomnia, unspecified G43.901 Migraine, unsp, not intracta ble, with status migrainosus F41.9 Anxiety disorder, unspecifie d E55.9 Vitamin D deficiency, unspec ified J45.40 Moderate persistent asthma, uncomplicated D50.9 Iron deficiency anemia, unsp ecified Office Visit 08/02/2020 8:40a [facility] Audrey Morrison D.O. 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 08/23/2020 G47.00 Insomnia, unspecified Audrey Mosher, D.O. 08/23/2020 G43.901 Migraine, unspecifie d, not intractable, with status migrainosus Audrey Morrison, D.O. 08/23/2020 F41.9 Anxiety disorder, unspecified Terrence Morrison, D.O. 08/23/2020 E55.9 Vitamin D deficiency, unspecifie d Audrey Morrison, D.O. 08/23/2020 J45.40 Moderate persistent asthma, unco mplicated Audrey Coon D.O. 08/23/2020 D50.9 Iron deficiency anemia, unspecif ied Audrey Morrison, D.O. 08/02/2020 F33.2 Major depressive dis order, recurrent severe without psychotic features Audrey Morrison D.O. 08/02/2020 G47.00 Insomnia, unspecified Audrey Mosher D.O. 08/02/2020 G43.901 Migraine, unspecifie d, not intractable, with status migrainosus Domitila Arredondo.O. 08/02/2020 F41.9 Anxiety disorder, unspecified Domitila Haynes.O. 08/02/2020 Z13.29 Encounter for screen ing for other suspected endocrine disorder Domitila Arredondo.OUbaldo 08/02/2020 E55.9 Vitamin D deficiency, unspecifie d Audrey Morrison D.O. Plan of Treatment Future Appointment(s):* 12/27/2020 11:20 am - LEATHA Chisholm at [facility] Functional Status Description No Information Available Mental Status Description No Information Available Referrals Refer to Dr Reason for Referral Status Appt Date James Aldana D.O. PHD Laurie has depression with mood disorder and some active thoughts of SI without a plan. Please evaluate and treat. [facility] [employer] [address] [place] [address] [phone]
--- OUTSIDE RECORDS SUMMARY | 2020-12-28 22:26 | CCD | Continuity of Care Document ---
Author Author Laurie LUCAS Organization Unknown [place] [address] Phone [phone] Care Team Providers Care Camp Head Counselor Name Role Phone Audrey Morrison D.O. AUTM [...] needed maximum daily dose = 2 istop: [id number] 60tabs F33.2 Sushil ArredondoO. 08/23/2020 Xanax 0.5mg Tablets take one tablet by daily as needed istop [id number] 30tabs Sushil SolizOUbaldo 08/23/2020 Venlafaxine HCL ER [...] or wheezing 24gm Sushil ArredondoOUbaldo 01/24/2018 Ipratropium [place]/Albuterol Sulfate 0.5-2.5(3)mg/3ML Solution 4 x a day [...] needed maximum daily dose = 2 istop: [id number] 30tabs F33.2 Sushil ArredondoO. 08/02/2020 - 08/23/2020 [...] F O2 % BldC Oximetry 98 % [place] Body Weight 100 lb 08/23/2020 8:46am BP Systolic 118 mmHg BP Diastolic 80 mmHg Height 58.8 inches 4'10.80" Weight 134.00 lb BMI (Body Mass Index) 27.2 kg/m2 Heart Rate 85 /min Respiratory Rate 16 /min Body Temperature 97.2 F O2 % BldC Oximetry 99 % [place] Body Weight 100 lb Results Test Acquired Date Facility Test Result H/L Range Note Laboratory test finding 08/19/[address] [id number] [phone] Total 25(Oh) Vitamin D 31.1 NG/ML Normal 30.0-100. 0 FT4&TSH Panel 08/19/2020 [facility] nter [address] [place] [address] [phone] Thyroid Stimulating Hormone 3.370 uIU/ML Normal 0. 358-3.740 Free T4 0.85 ng/dL Normal 0.76-1.46 Comprehensive Metabolic Profil 08/19/[address] [address]16870 [phone] Glucose, Fasting 92 mg/dL Normal 70-100 Blood [...] 1.1 Low 1.2-2.2 CBC With Differential 08/19/[address] [address] [phone] White Blood Count 15.0 10 High 4.0-10.0 [...] 36.0-66.0 Lymph % 30.2 % Normal 24.0-44.0 [place] % 5.3 % Normal 2.0-8.0 Eos % 25.8 % High 0.0-3.0 2 Baso % 0.8 % Normal 0.0-1.0 Immature Granulocyte % 0.3 % Normal 0-3.0 Nucleated Red Blood Cell % 0.0 % Normal 0-0 Neutrophils # 5.7 10 Normal 1.5-8.5 Lymph # 4.5 10 Normal 1.5-5.0 [place] # 0.8 10 Normal 0.0-0.8 Eos # 3.9 10 High 0.0-0.5 Baso # 0.1 10 Normal 0.0-0.2 Laboratory test finding 08/19/[address] [address] [phone] Vitamin B12 Level 1341 pg/mL High 247-911 3 Ferritin 67 NG/ML Normal 8-252 Total Iron Binding Capacit 08/19/2020 [facility] [address] [place] [address] [phone] Iron (Fe) 41 g/dL Low 50-170 Total Iron Binding Capacity 393 g/dL Normal 250-450 Percent Saturation 10.4 % Low 13.2-45.0 Anti-Gliadin Antibody 08/19/[address] [address] [phone] Unitsiga For Gliadin Iga 2 units Normal 0-19 4 Unitsigg For Gliadin Igg 1 units Normal 0-19 5 Laboratory test finding 08/19/[address] [address] [phone] Tissue Transglutaminase IgG <2 U/mL Normal 0-5 6 Tissue Transglutaminase IgA <2 U/mL Normal 0-3 7 1 Units are mL/min/1.73 m2 Chronic Kidney Disease Staging per NKF: Stage I & II GFR >=60 Normal to Mildly Decreased Stage III GFR 30-59 Moderately Decreased Stage IV GFR 15-29 Severely Decreased Stage V GFR <15 Very Little GFR Left ESRD GFR <15 on CHANGE MANAGEMENT EXPERT 2 Scan Verified machine result s 3 [...] Positive >9 Performed at: RN - [facility] [address] [id number] Clinical Medical Transcriptionist: Viry Marr MD, Phone: [phone] Negative 0 - 3 Weak Positive 4 - 10 Positive >10 . Tissue Transglutaminase (tTG) has been identified as the endomysial antigen. Studies have demonstr- ated that endomysial IgA antibodies have over 99% specificity for gluten sensitive enteropathy. Procedures Date Code Description Status 10/10/2020 64712 Office/Outpatient Established Mo d MDM 30-39 Min Completed 10/10/2020 29495 Brief Emotional/Beha v Assessment W/ Scoring Doc Per Standard Inst Completed 08/23/2020 02329 Office/Outpatient Established Mo d MDM 30-39 Min Completed 08/02/2020 34059 Office/Outpatient Established Mo d MDM 30-39 Min Completed Medical Devices Description No Information Available Encounters Type Date Location Provider Dx Diagnosis Office Visit 10/10/2020 1:15p [facility] LEATHA Pino D50.9 Iron deficiency anemia, unsp ecified K58.0 Irritable bowel syndrome wit h diarrhea J45.40 Moderate persistent asthma, uncomplicated F43.22 Adjustment disorder with anx iety F33.2 Major depressv disorder, rec urrent severe w/o psych features Office Visit 08/23/2020 8:40a [facility] Audrey Morrison D.O. F33.2 Major depressv disorder, rec urrent severe w/o psych features G47.00 Insomnia, unspecified G43.901 Migraine, unsp, not intracta ble, with status migrainosus F41.9 Anxiety disorder, unspecifie d E55.9 Vitamin D deficiency, unspec ified J45.40 Moderate persistent asthma, uncomplicated D50.9 Iron deficiency anemia, unsp ecified Office Visit 08/02/2020 8:40a [facility] Audrey Morrison D.OUbaldo F33.2 Major depressv disorder, [...] d, not intractable, with status migrainosus Audrey Mrorison, D.O. 08/23/2020 F41.9 Anxiety disorder, unspecified Terrence [...] 10/26/2020 8:00 am - LEATHA Chisholm at [facility] 10/10/2020 - LEATHA Chisholm* D50.9 Iron deficiency [...]
--- OUTSIDE RECORDS SUMMARY | 2020-12-28 22:26 | CCD | Continuity of Care Document ---
Author Author Laurie LUCAS Organization [place] [address] Phone [phone] Care Team Providers Care Rental Sales Representative Name Role Phone Audrey Morrison D.O. AUTM James Aldana D.O. PHD AUTM Problems Active [...] or wheezing 24gm Sushil ArredondoOUbaldo 01/24/2018 Ipratropium Pillow/Albuterol Sulfate 0.5-2.5(3)mg/3ML Solution 4 x a day [...] needed maximum daily dose = 2 istop: [id number] 60tabs F33.2 Audrey Morrison D.O. 08/23/2020 - 12/08/2020 Xanax 0.5mg Tablets take one tablet by daily as needed istop [id number] 30tabs Sushil SolizOUbaldo 08/23/2020 - 12/08/2020 Clonazepam 0.5mg Tablets take one tablet by mouth twice a day as needed maximum daily dose = 2 istop: [id number] 30tabs F33.2 Audrey Morrison D.O. 08/02/2020 - [...] F O2 % BldC Oximetry 99 % [place] Body Weight 100 lb 11/07/2020 10:45am BP Systolic 118 mmHg BP Diastolic 78 mmHg Height 58.8 inches 4'10.80" Weight 129.50 lb BMI (Body Mass Index) 26.3 kg/m2 Heart Rate 95 /min Respiratory Rate 18 /min Body Temperature 97.9 F O2 % BldC Oximetry 95 % [place] Body Weight 100 lb Results Test Acquired Date Facility Test Result H/L Range Note Laboratory test finding 08/19/2020 [place] [id number] [phone] Total 25(Oh) Vitamin D 31.1 NG/ML Normal 30.0-100. 0 FT4&TSH Panel 08/19/2020 [facility] nter [address] [place] [address] [phone] Thyroid Stimulating Hormone 3.370 uIU/ML Normal 0. 358-3.740 Free T4 0.85 ng/dL Normal 0.76-1.46 Comprehensive Metabolic Profil 08/19/[address] [address] [phone] Glucose, Fasting 92 mg/dL Normal 70-100 Blood [...] 1.1 Low 1.2-2.2 CBC With Differential 08/19/[address] [address] [phone] White Blood Count 15.0 10 High 4.0-10.0 [...] 36.0-66.0 Lymph % 30.2 % Normal 24.0-44.0 [place] % 5.3 % Normal 2.0-8.0 Eos % 25.8 % High 0.0-3.0 2 Baso % 0.8 % Normal 0.0-1.0 Immature Granulocyte % 0.3 % Normal 0-3.0 Nucleated Red Blood Cell % 0.0 % Normal 0-0 Neutrophils # 5.7 10 Normal 1.5-8.5 Lymph # 4.5 10 Normal 1.5-5.0 [place] # 0.8 10 Normal 0.0-0.8 Eos # 3.9 10 High 0.0-0.5 Baso # 0.1 10 Normal 0.0-0.2 Laboratory test finding 08/19/[address] [address] [phone] Vitamin B12 Level 1341 pg/mL High 247-911 3 Ferritin 67 NG/ML Normal 8-252 Total Iron Binding Capacit 08/19/[address] [address] [phone] Iron (Fe) 41 g/dL Low 50-170 Total Iron Binding Capacity 393 g/dL Normal 250-450 Percent Saturation 10.4 % Low 13.2-45.0 Anti-Gliadin Antibody 08/19/[address] [address] [phone] Unitsiga For Gliadin Iga 2 units Normal 0-19 4 Unitsigg For Gliadin Igg 1 units Normal 0-19 5 Laboratory test finding 08/19/[address] [address] [phone] Tissue Transglutaminase IgG <2 U/mL Normal 0-5 6 Tissue Transglutaminase IgA <2 U/mL Normal 0-3 7 1 Units are mL/min/1.73 m2 Chronic Kidney Disease Staging per NKF: Stage I & II GFR >=60 Normal to Mildly Decreased Stage III GFR 30-59 Moderately Decreased Stage IV GFR 15-29 Severely Decreased Stage V GFR <15 Very Little GFR Left ESRD GFR <15 on MEDICARE NURSE 2 Scan Verified machine result s 3 [...] 6 - 9 Positive >9 Performed at: - [facility] [address] [id number] Index Clerk: Viry Marr MD, Phone: [phone] Negative 0 - 3 Weak Positive 4 - 10 Positive >10 . Tissue Transglutaminase (tTG) has been identified as the endomysial antigen. Studies have demonstr- ated that endomysial IgA antibodies have over 99% specificity for gluten sensitive enteropathy. Procedures Date Code Description Status 12/08/2020 77623 Office/Outpatient Established Mo d MDM 30-39 Min Completed 12/08/2020 88730 Brief Emotional/Beha v Assessment W/ Scoring Doc Per Standard Inst Completed 11/07/2020 67774 Office/Outpatient Established Lo w MDM 20-29 Min Completed 10/10/2020 12100 Office/Outpatient Established Mo d MDM 30-39 Min Completed 10/10/2020 04034 Brief Emotional/Beha v Assessment W/ Scoring Doc Per Standard Inst Completed 08/23/2020 75726 Office/Outpatient Established Mo d MDM 30-39 Min Completed 08/02/2020 44626 Office/Outpatient Established Mo d MDM 30-39 Min Completed Medical Devices Description No Information Available Encounters Type Date Location Provider Dx Diagnosis Office Visit 12/08/2020 11:20a [facility] LEATHA Pino F33.1 Major depressive disorder, r ecurrent, moderate R45.851 Suicidal ideations 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 08/23/2020 G47.00 Insomnia, unspecified Audrey Rose ano-Shaggy, D.O. 08/23/2020 G43.901 Migraine, unspecifie d, not intractable, with status migrainosus Audrey Zambrano-Shaggy, D.O. 08/23/2020 F41.9 Anxiety disorder, unspecified Terrence Fernandono-Shaggy, D.O. 08/23/2020 E55.9 Vitamin D deficiency, unspecifie d Audrey Morrison, D.O. 08/23/2020 J45.40 Moderate persistent asthma, unco mplicated Audrey Bautistaber, D.O. 08/23/2020 D50.9 Iron deficiency anemia, unspecif ied Audrey Norwoodber, D.O. 08/02/2020 F33.2 Major depressive dis order, recurrent severe without psychotic features Audrey Norwoodber, D.O. 08/02/2020 G47.00 Insomnia, unspecified Audrey Rose ano-Shaggy, D.O. 08/02/2020 G43.901 Migraine, unspecifie d, not intractable, with status migrainosus Audrey Zambrano-Shaggy, D.O. 08/02/2020 F41.9 Anxiety disorder, unspecified Terrence Fernandono-Shaggy, D.O. 08/02/2020 Z13.29 Encounter for screen ing for other suspected endocrine disorder Audrey Morrison, D.O. 08/02/2020 E55.9 Vitamin D deficiency, unspecifie d Audrey Morrison D.O. Plan of Treatment Future Appointment(s):* 12/27/2020 11:20 am - LEATHA Chisholm at [facility] Functional Status Description No Information Available Mental Status Description No Information Available Referrals Refer to Reason for Referral Status Appt Date James Aldana D.O. PHD Laurie has depression with mood disorder and some active thoughts of SI without a plan. Please evaluate and treat. Sent [employer] [address] [place] [address] [phone]
--- OUTSIDE RECORDS SUMMARY | 2020-12-28 22:26 | CCD | Continuity of Care Document ---
Author Author Laurie LUCAS Organization [place] [address] Phone [phone] Care Team Providers Care Stain Wiper Name Role Phone Audrey Morrison D.O. AUTM [phone] Problems Active Problems Provider Date Uncomplicated moderate [...] by mouth every day 90caps F33.2 Sushil ArredondoOUbadlo 08/02 Topiramate 100mg Tablets Take 1 Tablet [...] or wheezing 24gm Sushil ArredondoOUbaldo 01/24/2018 Ipratropium [place]/Albuterol Sulfate 0.5-2.5(3)mg/3ML Solution 4 x a day [...] needed maximum daily dose = 2 istop: [id number] 60tabs F33.2 Sushil ArredondoO. 08/23/2020 - 12/08/2020 Xanax 0.5mg Tablets take one tablet by daily as needed istop [id number] 30tabs Sushil SolizOUbaldo 08/23/2020 - 12/08/2020 Clonazepam 0.5mg Tablets take one tablet by mouth twice a day as needed maximum daily dose = 2 istop: [id number] 30tabs F33.2 Audrey Morrison D.O. 08/02/2020 - 08/23/2020 Medications Administered in Office Medication SIG Qnty Indications Ordering Provider Date Injection Promethazine Hci To 50 MG Injection LEATHA Blanca 017 Injection Ketorolac Tromethamine Per 15 MG (Toradol) Injection LEATHA Davey 07/04/2016 Therapeutic, Prophylactic Or Diagnostic Injection Subq/Im Injection LEATHA Daevy 07/04/2016 Immunizations Description No Information Available Vital Signs Date Vital Result Comment 11/07/2020 10:45am BP Systolic 118 mmHg BP Diastolic 78 mmHg Height 58.8 inches 4'10.80" Weight 129.50 lb BMI (Body Mass Index) 26.3 kg/m2 Heart Rate 95 /min Respiratory Rate 18 /min Body Temperature 97.9 F O2 % BldC Oximetry 95 % [place] Body Weight 100 lb 10/10/2020 1:25pm BP Systolic 120 mmHg BP Diastolic 78 mmHg Height 58.8 inches 4'10.80" Weight 133.38 lb BMI (Body Mass Index) 27.1 kg/m2 Heart Rate 101 /min Respiratory Rate 14 /min Body Temperature 98.4 F O2 % BldC Oximetry 98 % [place] Body Weight 100 lb Results Test Acquired Date Facility Test Result H/L Range Note Laboratory test finding 08/19/[address] [phone] Total 25(Oh) Vitamin D 31.1 NG/ML Normal 30.0-100. 0 FT4&TSH Panel 08/19/2020 [facility] nter [address] [place] [address] [phone] Thyroid Stimulating Hormone 3.370 uIU/ML Normal 0. 358-3.740 Free T4 0.85 ng/dL Normal 0.76-1.46 Comprehensive Metabolic Profil 08/19/[address] [id number] [phone] Glucose, Fasting 92 mg/dL Normal 70-100 Blood [...] 1.1 Low 1.2-2.2 CBC With Differential 08/19/2020 [place] [id number] [phone] White Blood Count 15.0 10 High 4.0-10.0 [...] 36.0-66.0 Lymph % 30.2 % Normal 24.0-44.0 [place] % 5.3 % Normal 2.0-8.0 Eos % 25.8 % High 0.0-3.0 2 Baso % 0.8 % Normal 0.0-1.0 Immature Granulocyte % 0.3 % Normal 0-3.0 Nucleated Red Blood Cell % 0.0 % Normal 0-0 Neutrophils # 5.7 10 Normal 1.5-8.5 Lymph # 4.5 10 Normal 1.5-5.0 [place] # 0.8 10 Normal 0.0-0.8 Eos # 3.9 10 High 0.0-0.5 Baso # 0.1 10 Normal 0.0-0.2 Laboratory test finding 08/19/[address] [address] [phone] Vitamin B12 Level 1341 pg/mL High 247-911 3 Ferritin 67 NG/ML Normal 8-252 Total Iron Binding Capacit 08/19/[address] [address] [phone] Iron (Fe) 41 g/dL Low 50-170 Total Iron Binding Capacity 393 g/dL Normal 250-450 Percent Saturation 10.4 % Low 13.2-45.0 Anti-Gliadin Antibody 08/19/[address] [address] [phone] Unitsiga For Gliadin Iga 2 units Normal 0-19 4 Unitsigg For Gliadin Igg 1 units Normal 0-19 5 Laboratory test finding 08/19/[address] [address] [phone] Tissue Transglutaminase IgG <2 U/mL Normal 0-5 6 Tissue Transglutaminase IgA <2 U/mL Normal 0-3 7 1 Units are mL/min/1.73 m2 Chronic Kidney Disease Staging per NKF: Stage I & II GFR >=60 Normal to Mildly Decreased Stage III GFR 30-59 Moderately Decreased Stage IV GFR 15-29 Severely Decreased Stage V GFR <15 Very Little GFR Left ESRD GFR <15 on CARDIAC CATH TECH 2 Scan Verified machine result s 3 [...] Positive >9 Performed at: RN - [facility] [address] [id number] Smokehouse Operator: Viry Marr MD, Phone: [phone] Negative 0 - 3 Weak Positive 4 - 10 Positive >10 . Tissue Transglutaminase (tTG) has been identified as the endomysial antigen. Studies have demonstr- ated that endomysial IgA antibodies have over 99% specificity for gluten sensitive enteropathy. Procedures Date Code Description Status 11/07/2020 80989 Office/Outpatient Established Lo w MDM 20-29 Min Completed 10/10/2020 28225 Office/Outpatient Established Mo d MDM 30-39 Min Completed 10/10/2020 08627 Brief Emotional/Beha v Assessment W/ Scoring Doc Per Standard Inst Completed 08/23/2020 21010 Office/Outpatient Established Mo d MDM 30-39 Min Completed 08/02/2020 62780 Office/Outpatient Established Mo d MDM 30-39 Min Completed Medical Devices Description No Information Available Encounters Type Date Location Provider Dx Diagnosis Office Visit 11/07/2020 10:30a [facility] LEATHA Chisholm F33.1 Major depressive disorder, r ecurrent, moderate G47.00 Insomnia, unspecified G43.901 Migraine, unsp, not intracta ble, with status migrainosus Z79.899 Other senior care (current) dr martinez therapy Office Visit 10/10/2020 1:15p [facility] LEATHA Chisholm D50.9 Iron deficiency anemia, unsp ecified K58.0 Irritable bowel syndrome wit h diarrhea J45.40 Moderate persistent asthma, uncomplicated F43.22 Adjustment disorder with anx iety F33.2 Major depressv disorder, rec urrent severe w/o psych features Office Visit 08/23/2020 8:40a [facility] Pardeep Morrison D.O. F33.2 Major depressv disorder, rec urrent severe w/o psych features G47.00 Insomnia, unspecified G43.901 Migraine, unsp, not intracta ble, with status migrainosus F41.9 Anxiety disorder, unspecifie d E55.9 Vitamin D deficiency, unspec ified J45.40 Moderate persistent asthma, uncomplicated D50.9 Iron deficiency anemia, unsp ecified Office Visit 08/02/2020 8:40a [facility] Pardeep Morrison D.O. F33.2 Major depressv disorder, [...] Ch[place] 11/07/2020 Z79.899 Other long term care social worker (current) drug t herapy LEATHA Chisholm 10/10/2020 [...] dis order, recurrent severe without psychotic features Sushil ArredondoOUbaldo 08/23/2020 G47.00 Insomnia, unspecified Sushil SiddiqiOUbaldo 08/23/2020 G43.901 Migraine, unspecifie d, not intractable, with status migrainosus Sushil ArredondoOUbaldo 08/23/2020 F41.9 Anxiety disorder, unspecified Terrence Morrison, D.O. 08/23/2020 E55.9 Vitamin D deficiency, unspecifie d Audrey Morrison D.O. 08/23/2020 J45.40 Moderate persistent asthma, unco mplicated Audrey Coon D.O. 08/23/2020 D50.9 Iron deficiency anemia, unspecif ied Audrey Morrison D.O. 08/02/2020 F33.2 Major depressive dis order, recurrent severe without psychotic features Audrey Morrison D.O. 08/02/2020 G47.00 Insomnia, unspecified Audrey Mosher, D.O. 08/02/2020 G43.901 Migraine, unspecifie d, not intractable, with status migrainosus Audrey Morrison D.O. 08/02/2020 F41.9 Anxiety disorder, unspecified Terrence Morrison, D.O. 08/02/2020 Z13.29 Encounter for screen ing for other suspected endocrine disorder Audrey Morrison D.O. 08/02/2020 E55.9 Vitamin D deficiency, unspecifie d Audrey Morrison D.O. Plan of Treatment Future Appointment(s):* 12/13/2020 11:30 am - LEATHA Chisholm at [facility] 12/08/2020 - LEATHA Chisholm* F33.1 Major depressive disorder, recurrent, moderate* Referral:* James Aldana D.O. 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 Functional Status Description No Information Available Mental Status Description No Information Available Referrals Refer to Dr Reason for Referral Status Appt Date James Aldana D.O. PHD Laurie has depression with mood disorder and some active thoughts of SI without a plan. Please evaluate and treat. Created [employer] [address] [place] [address] [phone]
--- OUTSIDE RECORDS SUMMARY | 2020-12-28 22:27 | CCD ---
Author Author [facility] Organization [facility] Address Unknown Phone Unavailable Care Team Providers Care Certified Wellness Program Manager Name Role Phone Wendie Davis MD Unavailable Unavailable Wendie Davis MD Unavailable Unavailable Wendie Davis MD Unavailable Unavailable Wendie Davis MD Unavailable Unavailable Wendie Davis MD Unavailable Unavailable Wendie Davis MD Unavailable Unavailable Wendie Davis MD Unavailable Unavailable Wendie Davis MD Unavailable Unavailable Wendie Davis MD Unavailable Unavailable Wendie Davis MD Unavailable Unavailable Wendie Davis MD Unavailable Unavailable Wendie Davis MD Unavailable Unavailable Wendie Davis MD Unavailable Unavailable Wendie Davis MD Unavailable Unavailable Wendie Davis MD Unavailable Unavailable Wendie Davis MD Unavailable Unavailable Wendie Davis MD Unavailable Unavailable Wendie Davis MD Unavailable Unavailable Wendie Davis MD Unavailable Unavailable Wendie Davis MD Unavailable Unavailable Wendie Davis MD Unavailable Unavailable Wendie Davis MD Unavailable Unavailable Wendie Davis MD Unavailable Unavailable Wendie Davis MD Unavailable Unavailable Wendie Davis MD Unavailable Unavailable Wendie Davis MD Unavailable Unavailable Wendie Davis MD Unavailable Unavailable Wendie Davis MD Unavailable Unavailable Wendie Davis MD Unavailable Unavailable Wendie Davis MD Unavailable Unavailable KWABENA-OCTAVIANO, GELACIO DO Unavailable Unavailable KWABENA-OCTAVIANO, GELACIO DO Unavailable Unavailable KWABENA-OCTAVIANO, GELACIO DO Unavailable Unavailable KWABENA-OCTAVIANO, GELACIO DO Unavailable Unavailable KWABENA-OCTAVIANO, GELACIO DO Unavailable Unavailable KWABENA-OCTAVIANO, GELACIO DO Unavailable Unavailable KWABENA-OCTAVIANO, GELACIO DO Unavailable Unavailable KWABENA-OCTAVIANO, GELACIO DO Unavailable Unavailable KWABENA-OCTAVIANO, GELACIO DO Unavailable Unavailable KWABENA-OCTAVIANO, GELACIO DO Unavailable Unavailable KWABENA-OCTAVIANO, GELACIO DO Unavailable Unavailable KWABENA-OCTAVIANO, GELACIO DO Unavailable Unavailable KWABENA-OCTAVIANO, GELACIO DO Unavailable Unavailable KWABENA-OCTAVIANO, GELACIO DO Unavailable Unavailable KWABENA-OCTAVIANO, GELACIO DO Unavailable Unavailable KWABENA-OCTAVIANO, GELACIO DO Unavailable Unavailable KWABENA-OCTAVIANO, GELACIO DO Unavailable Unavailable KWABENA-OCTAVIANO, GELACIO DO Unavailable Unavailable KWABENA-OCTAVIANO, GELACIO DO Unavailable Unavailable KWABENA-OCTAVIANO, GELACIO DO Unavailable Unavailable KWABENA-OCTAVIANO, GELACIO DO Unavailable Unavailable KWABENA-OCTAVIANO, GELACIO DO Unavailable Unavailable KWABENA-OCTAVIANO, GELACIO DO Unavailable Unavailable KWABENA-OCTAVIANO, GELACIO DO Unavailable Unavailable KWABENA-OCTAVIANO, GELACIO DO Unavailable Unavailable KWABENA-OCTAVIANO, GELACIO DO Unavailable Unavailable KWABENA-OCTAVIANO, GELACIO DO Unavailable Unavailable KWABENA-OCTAVIANO, GELACIO DO Unavailable Unavailable KWABENA-OCTAVIANO, GELACIO DO Unavailable Unavailable KWABENA-OCTAVIANO, GELACIO DO Unavailable Unavailable KWABENA-OCTAVIANO, GELACIO DO Unavailable Unavailable KWABENA-OCTAVINAO, GELACIO DO Unavailable Unavailable KWABENA-OCTAVIANO, GELACIO DO Unavailable Unavailable KWABENA-OCTAVIANO, GELACIO DO Unavailable Unavailable KWABENA-OCTAVIANO, GELACIO DO Unavailable Unavailable KWABENA-OCTAVIANO, GELACIO DO Unavailable Unavailable KWABENA-OCTAVIANO, GELACIO DO Unavailable Unavailable KWABENA-OCTAVIANO, GELACIO DO Unavailable Unavailable KWABENA-OCTAVIANO, GELACIO DO Unavailable Unavailable KWABENA-OCTAVIANO, GELACIO DO Unavailable Unavailable KWABENA-OCTAVIANO, GELACIO DO Unavailable Unavailable KWABENA-OCTAVIANO, GELACIO DO Unavailable Unavailable KWABENA-OCTAVIANO, GELACIO DO Unavailable Unavailable KWABENA-OCTAVIANO, GELACIO DO Unavailable Unavailable KWABENA-OCTAVIANO, GELACIO DO Unavailable Unavailable KWABENA-OCTAVIANO, GELACIO DO Unavailable Unavailable KWABENA-OCTAVIANO, GELACIO DO Unavailable Unavailable KWABENA-OCTAVIANO, GELACIO DO Unavailable Unavailable KWABENA-OCTAVIANO, GELACIO DO Unavailable Unavailable KWABENA-OCTAVIANO, GELACIO DO Unavailable Unavailable KWABENA-OCTAVIANO, GELACIO DO Unavailable Unavailable KWABENA-OCTAVIANO, GELACIO DO Unavailable Unavailable KWABENA-OCTAVIANO, GELACIO DO Unavailable Unavailable KWABENA-OCTAVIANO, GELACIO DO Unavailable Unavailable KWABENA-OCTAVIANO, GELACIO DO Unavailable Unavailable KWABENA-OCTAVIANO, GELACIO DO Unavailable Unavailable KWABENA-OCTAVIANO, GELACIO DO Unavailable Unavailable KWABENA-OCTAVIANO, GELACIO DO Unavailable Unavailable KWABENA-OCTAVIANO, GELACIO DO Unavailable Unavailable KWABENA-OCTAVIANO, GELACIO DO Unavailable Unavailable KWABENA-OCTAVIANO, GELACIO DO Unavailable Unavailable KWABENA-OCTAVIANO, GELACIO DO Unavailable Unavailable KWABENA-OCTAVIANO, GELACIO DO Unavailable Unavailable KWABENA-OCTAVIANO, GELACIO DO Unavailable Unavailable KWABENA-OCTAVIANO, GELACIO DO Unavailable Unavailable KWABENA-OCTAVIANO, GELACIO DO Unavailable Unavailable KWABENA-OCTAVIANO, GELACIO DO Unavailable Unavailable KWABENA-OCTAVIANO, GELACIO DO Unavailable Unavailable KWABENA-OCTAVIANO, GELACIO DO Unavailable Unavailable KWABENA-OCTAVIANO, GELACIO DO Unavailable Unavailable KWABENA-OCTAVIANO, GELACIO DO Unavailable Unavailable KWABENA-OCTAVIANO, GELACIO DO Unavailable Unavailable KWABENA-OCTAVIANO, GELACIO DO Unavailable Unavailable KWABENA-OCTAVIANO, GELACIO DO Unavailable Unavailable KWABENA-OCTAVIANO, GELACIO DO Unavailable Unavailable KWABENA-OCTAVIANO, GELACIO DO Unavailable Unavailable KWABENA-OCTAVIANO, GELACIO DO Unavailable Unavailable KWABENA-OCTAVIANO, GELACIO DO Unavailable Unavailable KWABENA-OCTAVIANO, GELACIO DO Unavailable Unavailable KWABENA-OCTAVIANO, GELACIO DO Unavailable Unavailable KWABENA-OCTAVIANO, GELACIO DO Unavailable Unavailable KWABENA-OCTAVIANO, GELACIO DO Unavailable Unavailable KWABENA-OCTAVIANO, GELACIO DO Unavailable Unavailable KWABENA-OCTAVIANO, GELACIO DO Unavailable Unavailable O'alicia, A Cuauhtemoc PA Unavailable Unavailable O'alicia, A Cuau[place]emoc PA Unavailable Unavailable O'alicia, A Cuauhtemoc PA Unavailable Unavailable O'alicia, A Cuauhteomc PA Unavailable Unavailable O'alicia, A Cuauhtemoc PA Unavailable Unavailable O'alicia, A Cuauhtemoc PA Unavailable Unavailable O'alicia, A Cuau[place]emoc PA Unavailable Unavailable O'alicia, A Cuauhtemoc PA Unavailable Unavailable O'alicia, A Cuauhtemoc PA Unavailable Unavailable O'alicia, A Cuauhtemoc PA Unavailable Unavailable O'alicia, A Cuau[place]emoc PA Unavailable Unavailable O'alicia, A Cuauhtemoc PA Unavailable Unavailable O'alicia, A Cuau[place]emoc PA Unavailable Unavailable O'alicia, A Cuauhtemoc PA Unavailable Unavailable O'alicia, A Cuau[place]emoc PA Unavailable Unavailable O'alicia, A Cuau[place]emoc PA Unavailable Unavailable O'alicia, A Cuau[place]emoc PA Unavailable Unavailable O'alicia, A Cuauhtemoc PA Unavailable Unavailable O'alicia, A Cuau[place]emoc PA Unavailable Unavailable O'alicia, A Cuau[place]emoc PA Unavailable Unavailable O'alicia, A Cuauhtemoc PA Unavailable Unavailable O'alicia, A Cuau[place]emoc PA Unavailable Unavailable O'alicia, A Cuau[place]emoc PA Unavailable Unavailable O'alicia, A Cuau[place]emoc PA Unavailable Unavailable O'alicia, A Cuau[place]emoc PA Unavailable Unavailable O'alicia, A Cuau[place]emoc PA Unavailable Unavailable O'alicia, A Cuau[place]emoc PA Unavailable Unavailable O'alicia, A Cuau[place]emoc PA Unavailable Unavailable O'alicia, A Cuauhtemoc PA Unavailable Unavailable O'alicia, A Cuauhtemoc PA Unavailable Unavailable O'alicia, A Cuauhtemoc PA Unavailable Unavailable O'alicia, A Cuauhtemoc PA Unavailable Unavailable O'alicia, A Cuauhtemoc PA Unavailable Unavailable Re-disclosure Warning The records that you are about to access may contain information from federally-assisted alcohol or drug abuse programs. If such information is present, then the following federally mandated warning applies: This information has been disclosed to you from records protected by federal confidentiality rules (42 CFR part 2). The federal rules prohibit you from making any further disclosure of this information unless further disclosure is expressly permitted by the written consent of the person to whom it pertains or as otherwise permitted by 42 CFR part 2. A general authorization for the release of medical or other information is NOT sufficient for this purpose. The Federal rules restrict any use of the information to criminally investigate or prosecute any alcohol or drug abuse patient.The records that you are about to access may contain highly sensitive health information, the redisclosure of which is protected by Article 27-F of the [facility] Public Health law. If you continue you may have access to information: Regarding HIV / AIDS; Provided by facilities licensed or operated by the [facility] Office of Mental Health; or Provided by the [facility] Office for People With Developmental Disabilities. If such information is present, then the following [facility] mandated warning applies: This information has been disclosed to you from confidential records which are protected by state law. State law prohibits you from making any further disclosure of this information without the specific written consent of the person to whom it pertains, or as otherwise permitted by law. Any unauthorized further disclosure in violation of state law may result in a fine or care home sentence or both. A general authorization for the release of medical or other information is NOT sufficient authorization for further disc losure. Family History Family Member Name Family Member Gender Family Member Status Date o f Status Description Data Source(s) Unknown Male Problem [facility] ([facility]) Unknown Female Problem [facility] Unknown Female Problem [facility] ([facility]) Encounters Encounter Providers Location Date Indications Data Source(s ) Outpatient Attender: Cuauhtemoc ZHANG [facility] 12/27/2020 11:20:00 AM EDT [facility] ([facility]) Outpatient Attender: Cuauhtemoc ZHANG [facility] 12/13/2020 11:30:00 AM EDT [facility] ([facility]) Outpatient Attender: Cuauhtemoc ZHANG [facility] 12/08/2020 11:20:00 AM EDT [facility] ([facility]) Outpatient Attender: Cuauhtemoc ZHANG [facility] 11/07/2020 10:30:00 AM EDT [facility] ([facility]) Outpatient Attender: Cuauhtemoc ZHANG [facility] 10/10/2020 01:15:00 PM EDT [facility] ([facility]) Outpatient Attender: GELACIO MOISE DO [facility] 08/23/2020 08:40:00 AM EDT [facility] Outpatient Attender: GELACIO MOISE DO [facility] 08/02/2020 08:40:00 AM EDT [facility] ([facility]) Outpatient Attender: Wendie Anton/Lyndsey/Rolan/Ryan palomino 07/21/2020 09:00:00 AM EDT [facility] ([facility]) Immunizations Vaccine Date Status Description Data Source(s) New in 2012. IIV4 12/27/2020 12:06:00 PM EDT completed [facility] ([facility]) COVID-19 VACCINE Moderna 05/25/2020 12:00:00 AM EST completed [facility] Vaccine Series Complete: YESThis Data wa s Submitted to [facility] Via [facility]. COVID-19 VACCINE Moderna 04/27/2020 12:00:00 AM EST completed [facility] Vaccine Series Complete: NOThis Data was Submitted to [facility] Via [facility]. Medications Medication Brand Name Start Date Product Form Dose Route Admi nistrative Instructions Pharmacy Instructions Status Indications Reaction Description Data Source(s) quetiapine 100 MG Oral Tablet Quetiapine Fumarate 12/27/2020 12:00: 00 AM EDT ORAL active [facility] ([facility]) quetiapine 200 MG Oral Tablet Quetiapine Fumarate 12/13/2020 12:00: 00 AM EDT ORAL completed [facility] ([facility]) quetiapine 200 MG Oral Tablet Seroquel 12/13/2020 12:00:00 AM EDT ORAL completed [facility] ([facility]) quetiapine 100 MG Oral Tablet QUETIAPINE FUMARATE 12/09/2020 12: 00:00 AM EDT tablet 30 TAKE ONE TABLET BY MOUTH EVERY N IGHT ONE HOUR BEFORE BED TAKE ONE TABLET BY MOUTH EVERY NIGHT ONE HOUR BEFORE BED SOLD: 12/09/2020 [facility] Alprazolam 0.5 MG Oral Tablet Alprazolam 12/08/2020 12:00:00 AM EDT ORAL active [facility] ([facility]) quetiapine 100 MG Oral Tablet Quetiapine Fumarate 12/08/2020 12:00: 00 AM EDT ORAL completed [facility] ([facility]) montelukast 10 MG Oral Tablet Montelukast Sodium 11/28/2020 12:00:00 AM EDT active [facility] ([facility]) 1 mg 11/08/2020 12:00:00 AM EDT tablet 60 TAKE ONE TABLET BY MOUTH TWICE A DAY NEEDED MAXIMUM DAILY DOSE = 2 TAKE ONE TABLET BY MOUTH TWICE A DAY NEEDED MAXIMUM DAILY DOSE = 2 SOLD: 11/14/2020 [facility] Alprazolam 0.5 MG Oral Tablet ALPRAZOLAM 11/07/2020 12:00:00 AM EDT ta blet 30 TAKE ONE TABLET BY MOUTH EVERY DAY NEEDED MAXIMUM DAILY DOSE = 1 TAKE ONE TABLET BY MOUTH EVERY DAY NEEDED MAXIMUM DAILY DOSE = 1 SOLD: 11/14/2020 [facility] 2 mg 10/11/2020 12:00:00 AM EDT tablet 30 TAKE ONE TABLET BY MOUTH IN THE EVENING TAKE ONE TABLET BY MOUTH IN THE EVENING SOLD: 10/11/2020 [facility] montelukast 5 MG Chewable Tablet MONTELUKAST SODIUM 10/11/2020 1 2:00:00 AM EDT tablet,chewable 90 CHEW ONE TABLET BY MOUTH EVERY D AY CHEW ONE TABLET BY MOUTH EVERY DAY SOLD: 10/11/2020 [facility] 4 mg 10/11/2020 12:00:00 AM EDT tablet 30 TAKE ONE TABLET BY MOUTH EVERY 6 HOURS NEEDED FOR NAUSEA TAKE ONE TABLET BY MOUTH EVERY 6 HOURS A S NEEDED FOR NAUSEA SOLD: 10/11/2020 [facility] aripiprazole 2 MG Oral Tablet Aripiprazole 10/10/2020 12:00:00 AM EDT ORAL completed [facility] ([facility]) montelukast 5 MG Chewable Tablet [Singulair] Singulair 10/10/2020 12:00:00 AM EDT ORAL completed [facility] ([facility]) 1 mg 10/03/2020 12:00:00 AM EDT tablet 60 TAKE ONE TABLET BY MOUTH TWICE A DAY NEEDED MAXIMUM DAILY DOSE = 2 TABLETS TAKE ONE TABLET BY MOUTH TWICE A DAY NEEDED MAXIMUM DAILY DOSE = 2 TABLETS SOLD: 10/10/2020 [facility] ferrous gluconate 324 MG Oral Tablet Ferrous Gluconate 08/2020 12:00:00 AM EDT ORAL completed [facility] ([facility]) 1 mg 08/23/2020 12:00:00 AM EDT tablet 60 TAKE ONE TABLET BY MOUTH TWICE A DAY NEEDED MAXIMUM DAILY DOSE = 2 TAKE ONE TABLET BY MOUTH TWICE A DAY NEEDED MAXIMUM DAILY DOSE = 2 SOLD: 08/25/2020 [facility] Alprazolam 0.5 MG Oral Tablet ALPRAZOLAM 08/23/2020 12:00:00 AM EDT ta blet 30 TAKE ONE TABLET BY MOUTH EVERY DAY NEEDED MAXIMUM DAILY DOSE = 1 TAKE ONE TABLET BY MOUTH EVERY DAY NEEDED MAXIMUM DAILY DOSE = 1 SOLD: 08/25/2020 [facility] Alprazolam 0.5 MG Oral Tablet [Xanax] Xanax 08/23/2020 12:00:00 AM EDT completed [facility] ([facility]) Clonazepam 1 MG Oral Tablet Clonazepam 08/23/2020 12:00:00 AM EDT ORAL completed [facility] ([facility]) ferrous sulfate 325 MG Oral Tablet Ferrous Sulfate 08/23/2020 12:00 :00 AM EDT ORAL completed [facility] ([facility]) 24 HR venlafaxine 150 MG Extended Release Oral Capsule Venla faxine HCL ER 08/02/2020 12:00:00 AM EDT ORAL active [facility] ([facility]) Clonazepam 0.5 MG Oral Tablet Clonazepam 08/02/2020 12:00:00 AM EDT ORAL completed [facility] ([facility]) 0.5 mg 08/02/2020 12:00:00 AM EDT tablet 30 TAKE ONE TABLET BY MOUTH TWICE A DAY NEEDED MAXIMUM DAILY DOSE = 2 TAKE ONE TABLET BY MOUTH TWICE A DAY NEEDED MAXIMUM DAILY DOSE = 2 SOLD: 08/03/2020 [facility] 60 ACTUAT Fluticasone propionate 0.1 MG/ ACTUAT / salmeterol 0.05 MG/ACTUAT Dry Powder Inhaler [Advair] Advair Diskus 01/21/2020 12:00:00 AM EST RESPIRATORY active [facility] ([facility], ) Insurance Providers Payer name Policy type / Coverage type Policy ID Covered democrat ID Covered democrat's relationship to morrell Policy Morrell Plan Information [facility] Commercial [id number] Self [facility] 1 [id number] [facility] [employer] 1 [id number] 1 [id number] [facility] [employer] [id number] Wanda [id number] [employer] [facility] [employer] [id number] Wanda [id number] [facility] B [id number] S VYS [id number] [facility] Commercial [id number] Self VY [id number] Commercial [id number] Self [id number] [facility] Commercial [id number] Self VY [id number] [facility] Commercial [id number] Self VY [id number] [facility] Commercial [id number] Self VY [id number] [facility] [id number] [facility] [id number] [employer] [place] 306/[id number] SP [id number] SELF PAY 2 UNAVAILABLE 1 UNAVAILA BLE SELF PAY 2 [id number] 1 [id number] [employer] O [id number] S [id number] [employer] O [id number] S [id number] [facility] Commercial [id number] Self [id number] SELF PAY SELF PAY ONLY [employer] [place] PPO 302/307 [id number] SP [id number] [employer] [place] PPO 302/307 [id number] SP [id number] Problems, Conditions, and Diagnoses No Information Surgeries/Procedures Procedure Description Date Indications Data Source(s) OFFICE OUTPATIENT VISIT 25 MINUTES 12/27/2020 12:00:00 AM EDT [facility] ([facility]) OFFICE OUTPATIENT VISIT 25 MINUTES 12/13/2020 12:00:00 AM EDT [facility] Brief Emotional/Behav Assessment W/ Scoring Doc Per Standard Inst 12/08/2020 12:00:00 AM EDT [facility] ([facility]) OFFICE OUTPATIENT VISIT 25 MINUTES 12/08/2020 12:00:00 AM EDT [facility] ([facility]) OFFICE OUTPATIENT VISIT 15 MINUTES 11/07/2020 12:00:00 AM EDT [facility] ([facility]) Brief Emotional/Behav Assessment W/ Scoring Doc Per Standard [facility] 10/10/2020 12:00:00 AM EDT [facility] ([facility]) OFFICE OUTPATIENT VISIT 25 MINUTES 10/10/2020 12:00:00 AM EDT [facility] ([facility]) OFFICE OUTPATIENT VISIT 25 MINUTES 08/23/2020 12:00:00 AM EDT [facility] ([facility]) OFFICE OUTPATIENT VISIT 25 MINUTES 08/02/2020 12:00:00 AM EDT [facility] ([facility]) Results ID Date Data Source [id number] 08/19/2020 06:10:00 PM EDT [facility] Name Value Range Interpretation Code Description Data Tamia rce(s) Supporting Document(s) Tissue transglutaminase IgG Ab [Units/volume] in Serum Labor atory test result 0-5 Normal (applies to non-numeric results) [facility] ([facility]) Negative 0 - 5 Weak Positive 6 - 9 Positive >9 Performed at: - [facility] [address] [id number] Supervisory Civil Engineer: Viry Marr MD, Phone: [phone] Tissue transglutaminase IgA Ab [Units/volume] in Serum Labor atory test result 0-3 Normal (applies to non-numeric results) [facility] ([facility]) Negative 0 - 3 Weak Positive 4 - 10 Positive >10 . Tissue Transglutaminase (tTG) has been identified as the endomysial antigen. Studies have demonstr- ated that endomysial IgA antibodies have over 99% specificity for gluten sensitive enteropathy. ID Date Data Source [id number] 08/19/2020 06:10:00 PM EDT [facility] ([facility]) Name Value Range Interpretation Code Description Data Tamia rce(s) Supporting Document(s) Unitsigg For Gliadin Igg 1 units 0-19 Normal (applies to non -numeric results) [facility] ([facility]) Negative 0 - 19 Weak Positive 20 - 30 Moderate to Strong Positive >30 Unitsiga For Gliadin Iga 2 units 0-19 Normal (applies to non -numeric results) [facility] ([facility]) Negative 0 - 19 Weak Positive 20 - 30 Moderate to Strong Positive >30 ID Date Data Source [id number] 08/19/2020 06:10:00 PM EDT [facility] ([facility]) Name Value Range Interpretation Code Description Data Tamia rce(s) Supporting Document(s) Iron (Fe) 41 ug/dL 50-170 Below low normal [facility] ( [facility]) Total Iron Binding Capacity 393 ug/dL 250-450 Norm al (applies to non-numeric results) [facility] ([facility]) Percent Saturation 10.4 % 13.2-45.0 Below low normal [facility] ([facility]) ID Date Data Source [id number] 08/19/2020 06:10:00 PM EDT [facility] ([facility]) Name Value Range Interpretation Code Description Data Tamia rce(s) Supporting Document(s) Cobalamin (Vitamin B12) [Mass/volume] in Serum or Plasma 1341 pg /mL 247-911 Above high normal [facility] ([facility]) VITAMIN B12 NORMAL RANGE NORMAL 247 - 911 PG/ML INDETERMINATE 211 - 246 PG/ML DEFICIENT LESS THAN 211 PG/ML Ferritin [Mass/volume] in Serum or Plasma 67 ng/mL 8-252 Normal (applies to non- numeric results) [facility] ([facility]) ID Date Data Source [id number] 08/19/2020 06:10:00 PM EDT [facility] ([facility]) Name Value Range Interpretation Code Description Data Tamia rce(s) Supporting Document(s) White Blood Count 15.0 10 4.0-10.0 Above high normal [facility] ([facility]) Hemoglobin 14.2 g/dL 12.0-15.5 Normal (applies to non-numeric resul ts) [facility] ([facility]) Red Blood Count 4.85 10 4.00-5.40 Normal (applies to non-numeric results) [facility] ([facility]) Mean Corpuscular Volume 90.1 fl 80.0-96.0 Normal ( applies to non-numeric results) [facility] ([facility]) Hematocrit 43.7 % 36.0-47.0 Normal (applies to non-numeric resul ts) [facility] ([facility]) Mean Corpuscular Hemoglobin 29.3 pg 27.0-33.0 Norm al (applies to non-numeric results) [facility] ([facility]) Mean Corpuscular HGB Conc 32.5 g/dL 32.0-36.5 Normal (applies to non-numeric results) [facility] ([facility]) Red Cell Distribution Width 14.3 % 11.5-14.5 Norm al (applies to non-numeric results) [facility] ([facility]) Platelet Count, Automated 280 10 150-450 Normal (applies to non-numeric results) [facility] ([facility]) Neutrophils % 37.6 % 36.0-66.0 Normal (applies to non-numeric re sults) [facility] ([facility]) Lymph % 30.2 % 24.0-44.0 Normal (applies to non-numeric resul ts) [facility] ([facility]) Avery % 5.3 % 2.0-8.0 Normal (applies to non-numeric resul ts) [facility] ([facility]) Eos % 25.8 % 0.0-3.0 Above high normal [facility] ([facility]) Scan Verified machine results Baso % 0.8 % 0.0-1.0 Normal (applies to non-numeric resul ts) [facility] ([facility]) Immature Granulocyte % 0.3 % 0-3.0 Normal (applies to non-n umeric results) [facility] ([facility]) Neutrophils # 5.7 10 1.5-8.5 Normal (applies to non-numeric re sults) [facility] ([facility]) Nucleated Red Blood Cell % 0.0 % 0-0 Normal (applies to n on-numeric results) [facility] ([facility]) Lymph # 4.5 10 1.5-5.0 Normal (applies to non-numeric resul ts) [facility] ([facility]) Avery # 0.8 10 0.0-0.8 Normal (applies to non-numeric resul ts) [facility] ([facility]) Eos # 3.9 10 0.0-0.5 Above high normal [facility] ([facility]) Baso # 0.1 10 0.0-0.2 Normal (applies to non-numeric resul ts) [facility] ([facility]) ID Date Data Source [id number] 08/19/2020 06:10:00 PM EDT [facility] ([facility]) Name Value Range Interpretation Code Description Data Tamia rce(s) Supporting Document(s) Blood Urea Nitrogen 10 mg/dL 7-18 Normal (applies to non-nume floridalma results) [facility] ([facility]) Glucose, Fasting 92 mg/dL 70-100 Normal (applies to non-numeric results) [facility] [facility] Creatinine For GFR 0.81 mg/dL 0.55-1.30 Normal (applies to non -numeric results) [facility] ([facility]) Glomerular Filtration Rate Laboratory test result Normal (applies to non- numeric results) [facility] ([facility]) <content>Units are mL/min/1.73 m2</content>
<content></content>
<content>Chronic Kidney Disease Staging per NKF:</content>
<content></content>
<content>Stage I & II GFR >=60 Normal to Mildly Decreased</content>
<content>Stage III GFR 30- 59 Moderately Decreased</content>
<content>Stage IV GFR 15-29 Severely Decreased</content>
<content>Stage V GFR <15 Very Little GFR Left</content>
<content>ESRD GFR <15 on [employer]</content>
<content></content> Sodium Level 139 meq/L 136-145 Normal (applies to non-numeric res ults) [facility] Potassium Serum 3.7 meq/L 3.5-5.1 Normal (applies to non-numeric results) [facility] ([facility]) Chloride Level 107 meq/L 98-107 Normal (applies to non-numeric r esults) [facility] ([facility]) Anion Gap 10 meq/L 8-16 Normal (applies to non-numeric resul ts) [facility] ([facility]) Carbon Dioxide Level 22 meq/L 21-32 Normal (applies to non-num rony results) [facility] ([facility]) Calcium Level 9.0 mg/dL 8.5-10.1 Normal (applies to non-numeric re sults) [facility] ([facility]) Alt/SGPT 21 U/L 12-78 Normal (applies to non-numeric resul ts) [facility] ([facility]) Ast/Sgot 9 U/L 7-37 Normal (applies to non-numeric resul ts) [facility] ([facility]) Alkaline Phosphatase 73 U/L 45-117 Normal (applies to non-num rony results) [facility] ([facility]) Bilirubin,Total 0.2 mg/dL 0.2-1.0 Normal (applies to non-numeric results) [facility] Total Protein 7.2 GM/DL 6.4-8.2 Normal (applies to non-numeric re sults) [facility] ([facility]) Albumin 3.8 GM/DL 3.2-5.2 Normal (applies to non-numeric resul ts) [facility] Albumin/Globulin Ratio 1.1 1.2-2.2 Below low normal [facility] ([facility]) ID Date Data Source [id number] 08/19/2020 06:10:00 PM EDT [facility] ([facility]) Name Value Range Interpretation Code Description Data Tamia rce(s) Supporting Document(s) Thyroid Stimulating Hormone 3.370 uIU/ML 0.358-3.740 Norm al (applies to non- numeric results) [facility] ([facility]) Free T4 0.85 ng/dL 0.76-1.46 Normal (applies to non-numeric resul ts) [facility]) ID Date Data Source [id number] 08/19/2020 06:10:00 PM EDT [facility] ([facility]) Name Value Range Interpretation Code Description Data Tamia rce(s) Supporting Document(s) Calcidiol [Mass/volume] in Serum or Plasma 31.1 ng/mL 30.0- 100.0 Normal (applies to non-numeric results) [facility] ([facility]) ID Date Data Source [id number] 03/24/2020 12:00:00 PM EST [facility] Name Value Range Interpretation Code Description Data Tamia rce(s) Supporting Document(s) SARS coronavirus 2 RNA Not Detected [facility] This lab was ordered by [facility] and reported by [facility]. ID Date Data Source [id number] 03/01/2020 09:30:00 AM EST [facility] Name Value Range Interpretation Code Description Data Tamia rce(s) Supporting Document(s) SARS coronavirus 2 RNA [facility] This lab was ordered by [facility] and reported by [facility]. Procedure Social History Code Duration Value Status Description Data Source(s ) Smoking 08/02/2020 12:00:00 AM EDT Patient has never smoked co mpleted Patient has never smoked [facility] ([facility]) Smoking 07/21/2020 12:00:00 AM EDT Patient has never smoked co mpleted Patient has never smoked [facility] ([facility], ) Vital Signs ID Date Data Source UNK Name Value Range Interpretation Code Description Data Source(s) Oxygen saturation in Arterial blood by Pulse oximetry 98 % 98 % [facility] ([facility]) Systolic blood pressure 126 mm[Hg] 126 mm[Hg] M [facility] ([facility]) Glen body weight 100 [lb_av] 100 [lb_av] [facility] ([facility]) Diastolic blood pressure 78 mm[Hg] 78 mm[Hg] [facility] Body height 58.8 [in_i] 58.8 [in_i] [facility] ([facility]) 4'10.80" Body weight 130.00 [lb_av] 130.00 [lb_av] [facility] ([facility]) Heart rate 103 /min 103 /min [facility] ([facility]) Body mass index (BMI) [Ratio] 26.4 kg/m2 26.4 k g/m2 [facility] ([facility]) Respiratory rate 18 /min 18 /min [facility] ( [facility]) Body temperature 97.3 [degF] 97.3 [degF] [facility] ([facility]) Systolic blood pressure 118 mm[Hg] 118 mm[Hg] M [facility] ([facility]) Diastolic blood pressure 78 mm[Hg] 78 mm[Hg] [facility] ([facility]) Body height 58.8 [in_i] 58.8 [in_i] [facility] ([facility]) 4'10.80" Body weight 129.00 [lb_av] 129.00 [lb_av] [facility] ([facility]) Body mass index (BMI) [Ratio] 26.2 kg/m2 26.2 k g/m2 [facility] ([facility]) Heart rate 84 /min 84 /min [facility] ([facility]) Respiratory rate 18 /min 18 /min [facility] ( [facility]) Body temperature 98.0 [degF] 98.0 [degF] [facility] ([facility]) Oxygen saturation in Arterial blood by Pulse oximetry 99 % 99 % [facility] ([facility]) Glen body weight 100 [lb_av] 100 [lb_av] [facility] ([facility]) Heart rate 95 /min 95 /min [facility] ([facility]) Glen body weight 100 [lb_av] 100 [lb_av] [facility] ([facility]) Body mass index (BMI) [Ratio] 26.3 kg/m2 26.3 k g/m2 [facility] ([facility]) Respiratory rate 18 /min 18 /min [facility] ( [facility]) Body temperature 97.9 [degF] 97.9 [degF] [facility] ([facility]) Oxygen saturation in Arterial blood by Pulse oximetry 95 % 95 % [facility] ([facility]) Systolic blood pressure 118 mm[Hg] 118 mm[Hg] M [facility] ([facility]) Diastolic blood pressure 78 mm[Hg] 78 mm[Hg] [facility] ([facility]) Body height 58.8 [in_i] 58.8 [in_i] [facility] ([facility]) 4'10.80" Body weight 129.50 [lb_av] 129.50 [lb_av] [facility] ([facility]) Systolic blood pressure 120 mm[Hg] 120 mm[Hg] M [facility] ([facility]) Diastolic blood pressure 78 mm[Hg] 78 mm[Hg] [facility] ([facility]) Respiratory rate 14 /min 14 /min [facility] ( [facility]) Body height 58.8 [in_i] 58.8 [in_i] [facility] ([facility]) 4'10.80" Body weight 133.38 [lb_av] 133.38 [lb_av] [facility] ([facility]) Body mass index (BMI) [Ratio] 27.1 kg/m2 27.1 k g/m2 [facility] ([facility]) Heart rate 101 /min 101 /min [facility] ([facility]) Body temperature 98.4 [degF] 98.4 [degF] [facility] ([facility]) Oxygen saturation in Arterial blood by Pulse oximetry 98 % 98 % [facility] ([facility]) Glen body weight 100 [lb_av] 100 [lb_av] [facility] ([facility]) Diastolic blood pressure 80 mm[Hg] 80 mm[Hg] [facility] ([facility]) Body mass index (BMI) [Ratio] 27.2 kg/m2 27.2 k g/m2 [facility] ([facility]) Heart rate 85 /min 85 /min [facility] ([facility]) Respiratory rate 16 /min 16 /min [facility] ( [facility]) Body temperature 97.2 [degF] 97.2 [degF] [facility] ([facility]) Oxygen saturation in Arterial blood by Pulse oximetry 99 % 99 % [facility] ([facility]) Body height 58.8 [in_i] 58.8 [in_i] [facility] ([facility]) 4'10.80" Body weight 134.00 [lb_av] 134.00 [lb_av] [facility] ([facility]) Systolic blood pressure 118 mm[Hg] 118 mm[Hg] [facility] Glen body weight 100 [lb_av] 100 [lb_av] [facility] ([facility]) Diastolic blood pressure 74 mm[Hg] 74 mm[Hg] [facility] ([facility]) Heart rate 80 /min 80 /min [facility] ([facility]) Oxygen saturation in Arterial blood by Pulse oximetry 99 % 99 % [facility] ([facility]) Body temperature 97.7 [degF] 97.7 [degF] [facility] ([facility]) Body height 59.5 [in_i] 59.5 [in_i] [facility] ([facility]) 4'11.50" Body weight 136.38 [lb_av] 136.38 [lb_av] [facility] ([facility]) Body mass index (BMI) [Ratio] 27.1 kg/m2 27.1 k g/m2 [facility] ([facility]) Glen body weight 100 [lb_av] 100 [lb_av] [facility] Body weight 61.860 kg 61.860 kg [facility] ([facility]) Body surface area Derived from formula 1.58 m2 1.58 m2 [facility] ([facility]) Systolic blood pressure 118 mm[Hg] 118 mm[Hg] M [facility] ([facility]) Body mass index (BMI) [Ratio] 25.7 kg/m2 25.7 k g/m2 [facility] ([facility]) Glen body weight 100 [lb_av] 100 [lb_av] [facility] ([facility]) Body weight 58.628 kg 58.628 kg [facility] ([facility]) Body surface area Derived from formula 1.54 m2 1.54 m2 [facility] ([facility], ) Systolic blood pressure 112 mm[Hg] 112 mm[Hg] [facility] Diastolic blood pressure 70 mm[Hg] 70 mm[Hg] [facility] ([facility]) Heart rate 91 /min 91 /min [facility] ([facility]) Oxygen saturation in Arterial blood by Pulse oximetry 98 % 98 % [facility] ([facility], ) Body temperature 98.0 [degF] 98.0 [degF] [facility] ([facility], ) Body height 59.5 [in_i] 59.5 [in_i] [facility] ([facility], ) 4'11.50" Body weight 129.25 [lb_av] 129.25 [lb_av] [facility] ([facility], )
[2020-12-29] MEDS ORDERED: RIZATRIPTAN BENZOATE 10 MG TAB PO ONE (01:30)
[2020-12-29] MEDS ORDERED: ONDANSETRON 4 MG ORAL DISINTEGRATING TAB PO ONE (01:30)
[2020-12-29 01:58] LABS: HEMATOCRIT 44.3 % (36.0-47.0); HEMOGLOBIN 14.5 g/dl (12.0-15.5); MEAN CORPUSCULAR HEMOGLOBIN 29.6 pg (27.0-33.0); MEAN CORPUSCULAR HGB CONC 32.7 g/dl (32.0-36.5); MEAN CORPUSCULAR VOLUME 90.4 fl (80.0-96.0); PLATELET COUNT, AUTOMATED 296 10^3/uL (150-450); WHITE BLOOD COUNT 15.4 10^3/uL (4.0-10.0)
[2020-12-29 02:33] LABS: ACETAMINOPHEN LEVEL < 2.0 UG/ML (10.0-30.0); ALBUMIN 3.7 GM/DL (3.2-5.2); ALT/SGPT 30 U/L (12-78); BILIRUBIN,DIRECT 0.1 MG/DL (0.0-0.2); BILIRUBIN,TOTAL 0.3 MG/DL (0.2-1.0); BLOOD UREA NITROGEN 10 MG/DL (7-18); CALCIUM LEVEL 8.9 MG/DL (8.5-10.1); CARBON DIOXIDE LEVEL 23 MEQ/L (21-32); CHLORIDE LEVEL 109 MEQ/L (98-107); CREATININE FOR GFR 0.92 MG/DL (0.55-1.30); ETHYL ALCOHOL (ETHANOL) < 0.003 % (0.000-0.010); GLOMERULAR FILTRATION RATE > 60.0 (>60); GLUCOSE, FASTING 91 MG/DL (70-100); POTASSIUM SERUM 3.7 MEQ/L (3.5-5.1); SALICYLATE LEVEL < 1.7 MG/DL (5.0-30.0); SODIUM LEVEL 141 MEQ/L (136-145); TOTAL PROTEIN 7.3 GM/DL (6.4-8.2)
[2020-12-29 03:23] LABS: AMPHETAMINES LEVEL URINE NEGATIVE (NEGATIVE); BARBITURATES URINE NEGATIVE (NEGATIVE); BENZODIAZEPINES URINE POSITIVE (NEGATIVE); CANNABINOIDS URINE POSITIVE (NEGATIVE); COCAINE METABOLITE URINE NEGATIVE (NEGATIVE); METHADONE URINE NEGATIVE (NEGATIVE); OPIATES URINE NEGATIVE (NEGATIVE); PHENCYCLIDINE URINE NEGATIVE (NEGATIVE)
--- OUTSIDE RECORDS SUMMARY | 2020-12-29 04:17 | CCD ---
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 If you continue you may have access to information: Regarding HIV / AIDS; Provided by facilities licensed or operated by the [facility] Office of Mental Health; or Provided by the [facility] Office for People With Developmental Disabilities. If such information is present, then the following [facility] mandated warning applies: This information has [...] law may result in a fine or group home sentence or both. A general authorization for the release of medical or other information is NOT sufficient authorization for further disc losure. Family History Family Member Name Family Member Gender Family Member Status Date o f Status Description Data Source(s) Unknown Male Problem [facility] ([facility]) Unknown Female Problem [facility] Unknown Female Problem [facility]) Encounters Encounter Providers Location Date Indications Data Source(s ) Outpatient Attender: Cuauhtemoc ZHANG [facility] 12/27/2020 11:20:00 AM EDT [facility] ([facility]) Outpatient Attender: Cuauhtemoc ZHANG [facility] 12/13/2020 11:30:00 AM EDT [facility] ([facility]) Outpatient Attender: Cuauhtemoc ZHANG [facility] 12/08/2020 11:20:00 AM EDT [facility] ([facility]) Outpatient Attender: Cuauhtemoc ZHANG [facility] 11/07/2020 10:30:00 AM EDT [facility] ([facility]) Outpatient Attender: Cuauhtemoc ZHANG [facility] 10/10/2020 01:15:00 PM EDT [facility] ([facility]) Outpatient Attender: GELACIO MOISE DO [facility] 08/23/2020 08:40:00 AM EDT [facility] ([facility] Outpatient Attender: GELACIO MOISE DO [facility] 08/02/2020 08:40:00 AM EDT [facility] ([facility]) Outpatient Attender: Wendie Anton/Lyndsey/Rolan/Ryan palomino 07/21/2020 09:00:00 AM EDT [facility] ([facility]) Immunizations Vaccine Date Status Description Data Source(s) New in 2012. IIV4 12/27/2020 12:06:00 PM EDT completed [facility] ([facility]) COVID-19 VACCINE Moderna 05/25/2020 12:00:00 AM EST completed [facility] Vaccine Series Complete: YESThis Data wa s Submitted to [facility] Via [facility]. COVID-19 VACCINE Moderna 04/27/2020 12:00:00 AM EST completed [facility] Vaccine Series Complete: NOThis Data was Submitted to [facility] [employer]. Medications Medication Brand Name Start Date Product Form Dose Route Admi nistrative Instructions Pharmacy Instructions Status Indications Reaction Description Data Source(s) quetiapine 100 MG Oral Tablet Quetiapine Fumarate 12/27/2020 12:00: 00 AM EDT ORAL active [facility] ([facility]) quetiapine 200 MG Oral Tablet Quetiapine Fumarate 12/13/2020 12:00: 00 AM EDT ORAL completed [facility] ([facility]) quetiapine 200 MG Oral Tablet Seroquel 12/13/2020 12:00:00 AM EDT ORAL completed [facility] ([facility]) quetiapine 100 MG Oral Tablet QUETIAPINE FUMARATE 12/09/2020 12: 00:00 AM EDT tablet 30 TAKE ONE TABLET BY MOUTH EVERY N IGHT ONE HOUR BEFORE BED TAKE ONE TABLET BY MOUTH EVERY NIGHT ONE HOUR BEFORE BED SOLD: 12/09/2020 [facility] Alprazolam 0.5 MG Oral Tablet Alprazolam 12/08/2020 12:00:00 AM EDT ORAL active [facility] ([facility]) quetiapine 100 MG Oral Tablet Quetiapine Fumarate 12/08/2020 12:00: 00 AM EDT ORAL completed [facility] ([facility]) montelukast 10 MG Oral Tablet Montelukast Sodium 11/28/2020 12:00:00 AM EDT active [facility] ([facility]) 1 mg 11/08/2020 12:00:00 AM EDT tablet [...] 10/10/2020 12:00:00 AM EDT ORAL completed [facility] ([facility]) montelukast 5 MG Chewable Tablet [Singulair] Singulair 10/10/2020 12:00:00 AM EDT ORAL completed [facility] ([facility]) 1 mg 10/03/2020 12:00:00 AM EDT tablet 60 TAKE ONE TABLET BY MOUTH TWICE A DAY NEEDED MAXIMUM DAILY DOSE = 2 TABLETS TAKE ONE TABLET BY MOUTH TWICE A DAY NEEDED MAXIMUM DAILY DOSE = 2 TABLETS SOLD: 10/10/2020 [facility] ferrous gluconate 324 MG Oral Tablet Ferrous Gluconate 08/2020 12:00:00 AM EDT ORAL completed [facility] ([facility]) 1 mg 08/23/2020 12:00:00 AM EDT tablet [...] Xanax 08/23/2020 12:00:00 AM EDT completed [facility] ([facility]) Clonazepam 1 MG Oral Tablet Clonazepam 08/23/2020 12:00:00 AM EDT ORAL completed [facility] ([facility]) ferrous sulfate 325 MG Oral Tablet Ferrous Sulfate 08/23/2020 12:00 :00 AM EDT ORAL completed [facility] ([facility]) 24 HR venlafaxine 150 MG Extended Release Oral Capsule Venla faxine HCL ER 08/02/2020 12:00:00 AM EDT ORAL active [facility] ([facility]) Clonazepam 0.5 MG Oral Tablet Clonazepam 08/02/2020 12:00:00 AM EDT ORAL completed [facility] ([facility]) 0.5 mg 08/02/2020 12:00:00 AM EDT tablet [...] 01/21/2020 12:00:00 AM EST RESPIRATORY active [facility] ([facility], ) Insurance Providers Payer name Policy type / Coverage type Policy ID Covered democrat ID Covered democrat's relationship to morrell Policy Morrell Plan Information [facility] Commercial [id number] Self [facility] 1 [id number] 1 [id number] [facility] [employer] 1 [id number] 1 [id number] [facility] [employer] [id number] Wanda [id number] [facility] [employer] [id number] Wanda [id number] [facility] B [id number] S VYS [id number] [facility] U/W Commercial [id number] Self VY [id number] CDP Commercial [id number] Self [id number] [facility] U/W Commercial [id number] Self VY [id number] [facility] U/W Commercial [id number] Self VY [id number] [facility] U/W Commercial [id number] Self VY [id number] [facility] [id number] [facility] [id number] [employer] [place] 306/806 [id number] SP [id number] SELF PAY 2 UNAVAILABLE 1 UNAVAILA BLE SELF PAY 2 [id number] 1 [id number] [employer] O [id number] S [id number] [employer] O [id number] S [id number] [facility] Commercial [id number] Self [id number] SELF PAY SELF PAY ONLY [place] PPO 302/307 [id number] SP [id number] [place] PPO 302/307 [id number] SP [id number] Problems, Conditions, and Diagnoses No Information Surgeries/Procedures Procedure Description Date Indications Data Source(s) OFFICE OUTPATIENT VISIT 25 MINUTES 12/27/2020 12:00:00 AM EDT [facility] ([facility]) OFFICE OUTPATIENT VISIT 25 MINUTES 12/13/2020 12:00:00 AM EDT [facility] ([facility]) Brief Emotional/Behav Assessment W/ Scoring Doc Per Standard Inst 12/08/2020 12:00:00 AM EDT [facility] ([facility]) OFFICE OUTPATIENT VISIT 25 MINUTES 12/08/2020 12:00:00 AM EDT [facility] ([facility]) OFFICE OUTPATIENT VISIT 15 MINUTES 11/07/2020 12:00:00 AM EDT [facility] ([facility]) Brief Emotional/Behav Assessment W/ Scoring Doc Per Standard [facility] 10/10/2020 12:00:00 AM EDT [facility] ([facility]) OFFICE OUTPATIENT VISIT 25 MINUTES 10/10/2020 12:00:00 AM EDT [facility] ([facility]) OFFICE OUTPATIENT VISIT 25 MINUTES 08/23/2020 12:00:00 AM EDT [facility] ([facility]) OFFICE OUTPATIENT VISIT 25 MINUTES 08/02/2020 12:00:00 AM EDT [facility] ([facility]) Results ID Date Data Source [id number] 08/19/2020 06:10:00 PM EDT [facility] ([facility]) Name Value Range Interpretation Code Description Data Tamia rce(s) Supporting Document(s) Tissue transglutaminase IgG Ab [Units/volume] in Serum Labor atory test result 0-5 Normal (applies to non-numeric results) [facility] ([facility]) Negative 0 - 5 Weak Positive 6 - 9 Positive >9 Performed at: - [facility] [address] [id number] Patient Appointment Coordinator: Viry Marr MD, Phone: [phone] Tissue transglutaminase IgA Ab [Units/volume] in Serum Labor atory test result 0-3 Normal (applies to non-numeric results) [facility] ([facility]) Negative 0 - 3 Weak Positive 4 - 10 Positive >10 . Tissue Transglutaminase (tTG) has been identified as the endomysial antigen. Studies have demonstr- ated that endomysial IgA antibodies have over 99% specificity for gluten sensitive enteropathy. ID Date Data Source [id number] 08/19/2020 06:10:00 PM EDT [facility] ([facility]) Name Value Range Interpretation Code Description Data Tamia rce(s) Supporting Document(s) Unitsigg For Gliadin Igg 1 units 0-19 Normal (applies to non -numeric results) [facility] ([facility]) Negative 0 - 19 Weak Positive 20 - 30 Moderate to Strong Positive >30 Unitsiga For Gliadin Iga 2 units 0-19 Normal (applies to non -numeric results) [facility] ([facility]) Negative 0 - 19 Weak Positive 20 - 30 Moderate to Strong Positive >30 ID Date Data Source [id number] 08/19/2020 06:10:00 PM EDT [facility] ([facility]) Name Value Range Interpretation Code Description Data Tamia rce(s) Supporting Document(s) Iron (Fe) 41 ug/dL 50-170 Below low normal [facility] ( [facility]) Total Iron Binding Capacity 393 ug/dL 250-450 Norm al (applies to non-numeric results) [facility] ([facility]) Percent Saturation 10.4 % 13.2-45.0 Below low normal [facility] ([facility]) ID Date Data Source [id number] 08/19/2020 06:10:00 PM EDT [facility] ([facility]) Name Value Range Interpretation Code Description Data Tamia rce(s) Supporting Document(s) Cobalamin (Vitamin B12) [Mass/volume] in Serum or Plasma 1341 pg /mL 247-911 Above high normal [facility] ([facility]) VITAMIN B12 NORMAL RANGE NORMAL 247 - 911 PG/ML INDETERMINATE 211 - 246 PG/ML DEFICIENT LESS THAN 211 PG/ML Ferritin [Mass/volume] in Serum or Plasma 67 ng/mL 8-252 Normal (applies to non- numeric results) [facility] ([facility]) ID Date Data Source [id number] 08/19/2020 06:10:00 PM EDT [facility] ([facility]) Name Value Range Interpretation Code Description Data Tamia rce(s) Supporting Document(s) White Blood Count 15.0 10 4.0-10.0 Above high normal [facility] ([facility]) Hemoglobin 14.2 g/dL 12.0-15.5 Normal (applies to non-numeric resul ts) [facility] ([facility]) Red Blood Count 4.85 10 4.00-5.40 Normal (applies to non-numeric results) [facility] ([facility]) Mean Corpuscular Volume 90.1 fl 80.0-96.0 Normal ( applies to non-numeric results) [facility] ([facility]) Hematocrit 43.7 % 36.0-47.0 Normal (applies to non-numeric resul ts) [facility] ([facility]) Mean Corpuscular Hemoglobin 29.3 pg 27.0-33.0 Norm al (applies to non-numeric results) [facility] ([facility]) Mean Corpuscular HGB Conc 32.5 g/dL 32.0-36.5 Normal (applies to non-numeric results) [facility] ([facility]) Red Cell Distribution Width 14.3 % 11.5-14.5 Norm al (applies to non-numeric results) [facility] ([facility]) Platelet Count, Automated 280 10 150-450 Normal (applies to non-numeric results) [facility] ([facility]) Neutrophils % 37.6 % 36.0-66.0 Normal (applies to non-numeric re sults) [facility] ([facility]) Lymph % 30.2 % 24.0-44.0 Normal (applies to non-numeric resul ts) [facility] ([facility]) [place] % 5.3 % 2.0-8.0 Normal (applies to non-numeric resul ts) [facility] ([facility]) Eos % 25.8 % 0.0-3.0 Above high normal [facility] ([facility]) Scan Verified machine results Baso % 0.8 % 0.0-1.0 Normal (applies to non-numeric resul ts) [facility] ([facility]) Immature Granulocyte % 0.3 % 0-3.0 Normal (applies to non-n umeric results) [facility] ([facility]) Neutrophils # 5.7 10 1.5-8.5 Normal (applies to non-numeric re sults) [facility] ([facility]) Nucleated Red Blood Cell % 0.0 % 0-0 Normal (applies to n on-numeric results) [facility] ([facility]) Lymph # 4.5 10 1.5-5.0 Normal (applies to non-numeric resul ts) [facility] ([facility]) [place] # 0.8 10 0.0-0.8 Normal (applies to non-numeric resul ts) [facility] ([facility]) Eos # 3.9 10 0.0-0.5 Above high normal [facility] ([facility]) Baso # 0.1 10 0.0-0.2 Normal (applies to non-numeric resul ts) [facility] ([facility]) ID Date Data Source [id number] 08/19/2020 06:10:00 PM EDT [facility] ([facility]) Name Value Range Interpretation Code Description Data Tamia rce(s) Supporting Document(s) Blood Urea Nitrogen 10 mg/dL 7-18 Normal (applies to non-nume floridalma results) [facility] ([facility]) Glucose, Fasting 92 mg/dL 70-100 Normal (applies to non-numeric results) [facility] ([facility]) Creatinine For GFR 0.81 mg/dL 0.55-1.30 Normal (applies to non -numeric results) [facility] ([facility]) Glomerular Filtration Rate Laboratory test result Normal (applies to non- numeric results) [facility] ([facility]) <content>Units are mL/min/1.73 m2</content>
<content></content>
<content>Chronic Kidney Disease Staging per NKF:</content>
<content></content>
<content>Stage I & II GFR >=60 Normal to Mildly Decreased</content>
<content>Stage III GFR 30- 59 Moderately Decreased</content>
<content>Stage IV GFR 15-29 Severely Decreased</content>
<content>Stage V GFR <15 Very Little GFR Left</content>
<content>ESRD GFR <15 on ADAPTED PHYSICAL EDUCATION TEACHER</content>
<content></content> Sodium Level 139 meq/L 136-145 Normal (applies to non-numeric res ults) [facility] ([facility]) Potassium Serum 3.7 meq/L 3.5-5.1 Normal (applies to non-numeric results) [facility] ([facility]) Chloride Level 107 meq/L 98-107 Normal (applies to non-numeric r esults) [facility] ([facility]) Anion Gap 10 meq/L 8-16 Normal (applies to non-numeric resul ts) [facility] ([facility]) Carbon Dioxide Level 22 meq/L 21-32 Normal (applies to non-num rony results) [facility] ([facility]) Calcium Level 9.0 mg/dL 8.5-10.1 Normal (applies to non-numeric re sults) [facility] ([facility]) Alt/SGPT 21 U/L 12-78 Normal (applies to non-numeric resul ts) [facility] ([facility]) Ast/Sgot 9 U/L 7-37 Normal (applies to non-numeric resul ts) [facility] ([facility]) Alkaline Phosphatase 73 U/L 45-117 Normal (applies to non-num rony results) [facility] ([facility]) Bilirubin,Total 0.2 mg/dL 0.2-1.0 Normal (applies to non-numeric results) [facility] Total Protein 7.2 GM/DL 6.4-8.2 Normal (applies to non-numeric re sults) [facility] ([facility]) Albumin 3.8 GM/DL 3.2-5.2 Normal (applies to non-numeric resul ts) [facility] ([facility]) Albumin/Globulin Ratio 1.1 1.2-2.2 Below low normal [facility] ([facility]) ID Date Data Source [id number] 08/19/2020 06:10:00 PM EDT [facility] ([facility]) Name Value Range Interpretation Code Description Data Tamia rce(s) Supporting Document(s) Thyroid Stimulating Hormone 3.370 uIU/ML 0.358-3.740 Norm al (applies to non- numeric results) [facility] ([facility]) Free T4 0.85 ng/dL 0.76-1.46 Normal (applies to non-numeric resul ts) [facility] ([facility]) ID Date Data Source [id number] 08/19/2020 06:10:00 PM EDT [facility] ([facility]) Name Value Range Interpretation Code Description Data Tamia rce(s) Supporting Document(s) Calcidiol [Mass/volume] in Serum or Plasma 31.1 ng/mL 30.0- 100.0 Normal (applies to non-numeric results) [facility] ([facility]) ID Date Data Source [id number] 03/24/2020 12:00:00 PM EST [facility] Name Value Range Interpretation Code Description Data Tamia rce(s) Supporting Document(s) SARS coronavirus 2 RNA Not Detected [facility] This lab was ordered by [facility] and reported by [facility]. ID Date Data Source [id number] 03/01/2020 09:30:00 AM EST [facility] Name Value Range Interpretation Code Description Data Tamia rce(s) Supporting Document(s) SARS coronavirus 2 RNA [facility] This lab was ordered by [facility] and reported by [facility]. Procedure Social History Code Duration Value Status Description Data Source(s ) Smoking 08/02/2020 12:00:00 AM EDT Patient has never smoked co mpleted Patient has never smoked [facility] ([facility]) Smoking 07/21/2020 12:00:00 AM EDT Patient has never smoked co mpleted Patient has never smoked [facility] ([facility], ) Vital Signs ID Date Data Source UNK Name Value Range Interpretation Code Description Data Source(s) Oxygen saturation in Arterial blood by Pulse oximetry 98 % 98 % [facility] ([facility]) Systolic blood pressure 126 mm[Hg] 126 mm[Hg] M [facility] ([facility]) [place] body weight 100 [lb_av] 100 [lb_av] [facility] ([facility]) Diastolic blood pressure 78 mm[Hg] 78 mm[Hg] [facility] ([facility]) Body height 58.8 [in_i] 58.8 [in_i] [facility] ([facility]) 4'10.80" Body weight 130.00 [lb_av] 130.00 [lb_av] [facility] ([facility]) Body mass index (BMI) [Ratio] 26.4 kg/m2 26.4 k g/m2 [facility] ([facility]) Heart rate 103 /min 103 /min [facility] ([facility]) Respiratory rate 18 /min 18 /min [facility] ( [facility]) Body temperature 97.3 [degF] 97.3 [degF] [facility] ([facility]) Systolic blood pressure 118 mm[Hg] 118 mm[Hg] M [facility] ([facility]) Diastolic blood pressure 78 mm[Hg] 78 mm[Hg] [facility] ([facility]) Body height 58.8 [in_i] 58.8 [in_i] [facility] ([facility]) 4'10.80" Body weight 129.00 [lb_av] 129.00 [lb_av] [facility] ([facility]) Body mass index (BMI) [Ratio] 26.2 kg/m2 26.2 k g/m2 [facility] ([facility]) Heart rate 84 /min 84 /min [facility] ([facility]) Respiratory rate 18 /min 18 /min [facility] ( [facility]) Body temperature 98.0 [degF] 98.0 [degF] [facility] ([facility]) Oxygen saturation in Arterial blood by Pulse oximetry 99 % 99 % [facility] ([facility]) [place] body weight 100 [lb_av] 100 [lb_av] [facility] T ([facility]) Heart rate 95 /min 95 /min [facility] ([facility]) [place] body weight 100 [lb_av] 100 [lb_av] [facility] T ([facility]) Body mass index (BMI) [Ratio] 26.3 kg/m2 26.3 k g/m2 [facility] ([facility]) Respiratory rate 18 /min 18 /min [facility] ( [facility]) Body temperature 97.9 [degF] 97.9 [degF] [facility] ([facility]) Oxygen saturation in Arterial blood by Pulse oximetry 95 % 95 % [facility] ([facility]) Systolic blood pressure 118 mm[Hg] 118 mm[Hg] M [facility] ([facility]) Diastolic blood pressure 78 mm[Hg] 78 mm[Hg] [facility] ([facility]) Body height 58.8 [in_i] 58.8 [in_i] [facility] ([facility]) 4'10.80" Body weight 129.50 [lb_av] 129.50 [lb_av] [facility] T ([facility]) Systolic blood pressure 120 mm[Hg] 120 mm[Hg] M [facility] ([facility]) Diastolic blood pressure 78 mm[Hg] 78 mm[Hg] [facility] ([facility]) Respiratory rate 14 /min 14 /min [facility] ( [facility]) Body height 58.8 [in_i] 58.8 [in_i] [facility] ([facility]) 4'10.80" Body weight 133.38 [lb_av] 133.38 [lb_av] [facility] ([facility]) Body mass index (BMI) [Ratio] 27.1 kg/m2 27.1 k g/m2 [facility] ([facility]) Heart rate 101 /min 101 /min [facility] ([facility]) Body temperature 98.4 [degF] 98.4 [degF] [facility] ([facility]) Oxygen saturation in Arterial blood by Pulse oximetry 98 % 98 % [facility] ([facility]) [place] body weight 100 [lb_av] 100 [lb_av] [facility] ([facility]) Body mass index (BMI) [Ratio] 27.2 kg/m2 27.2 k g/m2 [facility] ([facility]) Diastolic blood pressure 80 mm[Hg] 80 mm[Hg] [facility] ([facility]) Heart rate 85 /min 85 /min [facility] ([facility]) Respiratory rate 16 /min 16 /min [facility] ( [facility]) Body temperature 97.2 [degF] 97.2 [degF] [facility] ([facility]) Oxygen saturation in Arterial blood by Pulse oximetry 99 % 99 % [facility] ([facility]) Body height 58.8 [in_i] 58.8 [in_i] [facility] ([facility]) 4'10.80" Body weight 134.00 [lb_av] 134.00 [lb_av] [facility] T ([facility]) Systolic blood pressure 118 mm[Hg] 118 mm[Hg] [facility] [place] body weight 100 [lb_av] 100 [lb_av] [facility] T ([facility]) Diastolic blood pressure 74 mm[Hg] 74 mm[Hg] [facility] ([facility]) Heart rate 80 /min 80 /min [facility] ([facility]) Oxygen saturation in Arterial blood by Pulse oximetry 99 % 99 % [facility] ([facility]) Body temperature 97.7 [degF] 97.7 [degF] [facility] ([facility]) Body height 59.5 [in_i] 59.5 [in_i] [facility] ([facility]) 4'11.50" Body weight 136.38 [lb_av] 136.38 [lb_av] [facility] ([facility]) Body mass index (BMI) [Ratio] 27.1 kg/m2 27.1 k g/m2 [facility] ([facility]) [place] body weight 100 [lb_av] 100 [lb_av] [facility] Body weight 61.860 kg 61.860 kg [facility] ([facility]) Body surface area Derived from formula 1.58 m2 1.58 m2 [facility] ([facility]) Systolic blood pressure 118 mm[Hg] 118 mm[Hg] M [facility] ([facility]) Body mass index (BMI) [Ratio] 25.7 kg/m2 25.7 k g/m2 [facility] ([facility]) Systolic blood pressure 112 mm[Hg] 112 mm[Hg] M [facility] ([facility]) Diastolic blood pressure 70 mm[Hg] 70 mm[Hg] [facility] ([facility]) Heart rate 91 /min 91 /min [facility] ([facility]) [place] body weight 100 [lb_av] 100 [lb_av] [facility] Body weight 58.628 kg 58.628 kg [facility] ([facility]) Body surface area Derived from formula 1.54 m2 1.54 m2 [facility] ([facility]) Oxygen saturation in Arterial blood by Pulse oximetry 98 % 98 % [facility] ([facility]) Body temperature 98.0 [degF] 98.0 [degF] [facility] ([facility] [facility]) Body height 59.5 [in_i] 59.5 [in_i] [facility] ([facility], ) 4'11.50" Body weight 129.25 [lb_av] 129.25 [lb_av] [facility] ([facility], )
[2020-12-29 05:43] LABS: RSV AMPLIFICATION NEGATIVE (NEGATIVE)
--- NOTE | 2020-12-29 07:46 | ECGEPIP ---
[facility] - ED Test Date: 2020-12-29 Pat Name: ADY RAMESH Department: Room: - Gender: Female Creative Project Manager: MARIELOS : 1980 Requested By: TOM Alford Order Number: [id number] Reading MD: Renzo Negron Measurements Intervals [place] Rate: 82 P: 46 [place]: 178 QRS: 57 QRSD: 78 T: 4 QT: 404 QTc: 472 Interpretive Statements Normal sinus rhythm ST & T wave abnormality, consider anterior ischemia NO PRIORS FOR COMPARISON Electronically Signed on 12-29-2020 7:45:59 EDT by Renzo Negron
[2020-12-29] MEDS ORDERED: FLUT1BLS4 INH (08:00)
[2020-12-29] MEDS ORDERED: RIZA10TA2 PO (08:00)
[2020-12-29] MEDS ORDERED: OMEP-218 PO (08:00)
[2020-12-29] MEDS ORDERED: QUET100T2 PO (08:00)
[2020-12-29] MEDS ORDERED: TRAZ-257 PO (08:00)
[2020-12-29] MEDS ORDERED: TOPI100T9 PO (08:00)
[2020-12-29] MEDS ORDERED: DICY10CA13 PO (08:00)
[2020-12-29] MEDS ORDERED: HOME MED LIST COMPLETE! XX SCH (08:00)
[2020-12-29] MEDS ORDERED: ALLE180T33 PO (08:00)
[2020-12-29] MEDS ORDERED: DUPI300I INJ (08:00)
[2020-12-29] MEDS ORDERED: VENL150C43 PO (08:00)
[2020-12-29] MEDS ORDERED: ALPR0.5T3 PO (08:00)
[2020-12-29] MEDS ORDERED: DROS1TAB2 PO (08:00)
[2020-12-29] MEDS ORDERED: MONT10TA10 PO (08:00)
[2020-12-29 08:14] LABS: HCG, SERUM QUALITATIVE NEGATIVE (NEGATIVE)
[2020-12-29] MEDS ORDERED: ALPRAZolam 0.5 MG TAB PO ONE (09:30)
[2020-12-29 10:11] VITALS: BP 136/90
== END 2020-12-29 10:13 ==
LOC: M ED 22:20
DX: F32.9 Major depressive disorder, single episode, unspecified (principal); R11.0 Nausea; J45.909 Unspecified asthma, uncomplicated; G43.909 Migraine, unspecified, not intractable, without status migrainosus; Z88.1 Allergy status to other antibiotic agents; Z88.2 Allergy status to sulfonamides; Z79.899 Other long term (current) drug therapy
CPT/HCPCS: 36415; 80048; 80076; 80143; 80307; 82077; 84443; 84703; 85027; 87631; 93005; 99284; Q0162

== ENCOUNTER → 2021-03-03 | Outpatient (CLI) | payer BC ==
[~2021-03-03] MED LIST changes: +ALLE180T33 PO; +ALPR0.5T3 PO; +DROS1TAB2 PO; +DUPI300I INJ; +FLUT1BLS4 INH; +MONT10TA97 PO; +OMEP-173 PO; -OMEP-218 PO; +QUET100T2 PO; +TOPI100T9 PO; +VENL150C43 PO
[2021-03-03 18:19] LABS: BASO # 0.1 10^3/uL (0.0-0.2); BASO % 0.9 % (0.0-1.0); EOS # 6.3 10^3/uL (0.0-0.5); HEMATOCRIT 42.6 % (36.0-47.0); LYMPH # 3.8 10^3/uL (1.5-5.0); LYMPH % 23.7 % (24.0-44.0); MEAN CORPUSCULAR HEMOGLOBIN 29.4 pg (27.0-33.0); MEAN CORPUSCULAR HGB CONC 32.9 g/dl (32.0-36.5); MEAN CORPUSCULAR VOLUME 89.3 fl (80.0-96.0); MONO # 0.8 10^3/uL (0.0-0.8); MONO % 4.6 % (2.0-8.0); NEUTROPHILS # 5.1 10^3/uL (1.5-8.5); NEUTROPHILS % 31.4 % (36.0-66.0); PLATELET COUNT, AUTOMATED 271 10^3/uL (150-450); RED BLOOD COUNT 4.77 10^6/uL (4.00-5.40); WHITE BLOOD COUNT 16.1 10^3/uL (4.0-10.0)
[2021-03-03 18:47] LABS: ALBUMIN 3.7 GM/DL (3.2-5.2); ALT/SGPT 36 U/L (12-78); BILIRUBIN,TOTAL 0.2 MG/DL (0.2-1.0); BLOOD UREA NITROGEN 14 MG/DL (7-18); CALCIUM LEVEL 9.5 MG/DL (8.5-10.1); CARBON DIOXIDE LEVEL 30 MEQ/L (21-32); CHLORIDE LEVEL 101 MEQ/L (98-107); CREATININE FOR GFR 0.85 MG/DL (0.55-1.30); GLOMERULAR FILTRATION RATE > 60.0 (>60); GLUCOSE, FASTING 96 MG/DL (70-100); POTASSIUM SERUM 4.3 MEQ/L (3.5-5.1); SODIUM LEVEL 136 MEQ/L (136-145); TOTAL PROTEIN 7.1 GM/DL (6.4-8.2)
[2021-03-03 19:15] LABS: EOS % 39.2 % (0.0-3.0)
== END ==
LOC: M LAB 17:52
PROVIDERS: ATTEND Physician Assistant
DX: F06.31 Mood disorder due to known physiological condition with depressive features (principal)

== ENCOUNTER → 2021-05-11 | Outpatient (CLI) | payer BC ==
[2021-05-11 15:04] LABS: BASO # 0.1 10^3/uL (0.0-0.2); BASO % 0.8 % (0.0-1.0); EOS # 4.4 10^3/uL (0.0-0.5); HEMATOCRIT 40.7 % (36.0-47.0); HEMOGLOBIN 13.3 g/dl (12.0-15.5); LYMPH # 3.8 10^3/uL (1.5-5.0); LYMPH % 22.6 % (24.0-44.0); MEAN CORPUSCULAR HEMOGLOBIN 28.7 pg (27.0-33.0); MEAN CORPUSCULAR HGB CONC 32.7 g/dl (32.0-36.5); MEAN CORPUSCULAR VOLUME 87.7 fl (80.0-96.0); MONO # 0.7 10^3/uL (0.0-0.8); MONO % 4.5 % (2.0-8.0); NEUTROPHILS # 7.5 10^3/uL (1.5-8.5); NEUTROPHILS % 45.4 % (36.0-66.0); PLATELET COUNT, AUTOMATED 285 10^3/uL (150-450); RED BLOOD COUNT 4.64 10^6/uL (4.00-5.40); WHITE BLOOD COUNT 16.6 10^3/uL (4.0-10.0)
[2021-05-11 15:25] LABS: EOS % 26.4 % (0.0-3.0)
[2021-05-11 15:35] LABS: ALBUMIN 3.8 GM/DL (3.2-5.2); ALT/SGPT 19 U/L (12-78); BILIRUBIN,TOTAL 0.2 MG/DL (0.2-1.0); BLOOD UREA NITROGEN 14 MG/DL (7-18); CALCIUM LEVEL 9.5 MG/DL (8.5-10.1); CARBON DIOXIDE LEVEL 26 MEQ/L (21-32); CHLORIDE LEVEL 104 MEQ/L (98-107); CREATININE FOR GFR 0.96 MG/DL (0.55-1.30); FREE T4 0.87 NG/DL (0.76-1.46); GLOMERULAR FILTRATION RATE > 60.0 (>58); GLUCOSE, FASTING 91 MG/DL (70-100); POTASSIUM SERUM 4.3 MEQ/L (3.5-5.1); SODIUM LEVEL 140 MEQ/L (136-145); TOTAL 25(OH) VITAMIN D 21.5 NG/ML (30.0-100.0); TOTAL PROTEIN 7.2 GM/DL (6.4-8.2)
== END ==
LOC: M LAB 14:34
PROVIDERS: ATTEND Physician Assistant
DX: J82.83 Eosinophilic asthma (principal); Z13.29 Encounter for screening for other suspected endocrine disorder

== ENCOUNTER 2021-08-20 19:27 | Emergency (ER) | payer BC ==
[~2021-08-20] VITALS: Ht 152.4 cm; Wt 62.7 kg
[2021-08-20] MEDS ORDERED: FLUT22IN INH (19:45)
[2021-08-20] MEDS ORDERED: YAZ1TAB PO (19:45)
[2021-08-20] MEDS ORDERED: CLON0.5T17 PO (19:45)
[2021-08-20] MEDS ORDERED: MAXA10TA14 PO (19:45)
[2021-08-20] MEDS ORDERED: ONDA4TAB6 PO (19:45)
[2021-08-20] MEDS ORDERED: GABA-282 PO (19:45)
[2021-08-20] MEDS ORDERED: LAMO25TA4 PO (19:45)
[2021-08-20] MEDS ORDERED: AJOV225I SC (19:45)
[2021-08-20] MEDS ORDERED: LEVAINH INH (19:45)
[2021-08-20] MEDS ORDERED: ADV100INH INH (19:45)
[2021-08-20] MEDS ORDERED: hydrALAZINE 20MG/ML 1ML VIAL (J0360 PER 20MG) IV ONE (21:05)
[2021-08-20 21:58] LABS: HEMATOCRIT 40.3 % (36.0-47.0); HEMOGLOBIN 13.5 g/dl (12.0-15.5); MEAN CORPUSCULAR HEMOGLOBIN 29.2 pg (27.0-33.0); MEAN CORPUSCULAR HGB CONC 33.5 g/dl (32.0-36.5); PLATELET COUNT, AUTOMATED 261 10^3/uL (150-450); RED BLOOD COUNT 4.63 10^6/uL (4.00-5.40); WHITE BLOOD COUNT 11.2 10^3/uL (4.0-10.0)
[2021-08-20] MEDS ORDERED: ISOVUE-370 76% 100ML VIAL As Ordered ONE (22:13)
[2021-08-20 22:14] VITALS: BP 184/102
[2021-08-20 22:17] LABS: BASOPHILS 2 % (0-1); EOSINOPHILS 14 % (0-3); LYMPHOCYTES 38 % (16-44); MONOCYTES 6 % (0-5); NEUTROPHILS 40 % (28-66); PLATELET ESTIMATE NORMAL (NORMAL)
[2021-08-20 22:41] LABS: INR 0.87; PARTIAL THROMBOPLASTIN TIME 27.5 SECONDS (25.9-37.0); PROTHROMBIN TIME 12.2 SECONDS (12.7-14.5)
[2021-08-20 23:00] LABS: BLOOD UREA NITROGEN 14 MG/DL (7-18); CALCIUM LEVEL 9.3 MG/DL (8.5-10.1); CARBON DIOXIDE LEVEL 27 MEQ/L (21-32); CHLORIDE LEVEL 107 MEQ/L (98-107); CREATININE FOR GFR 0.85 MG/DL (0.55-1.30); GLOMERULAR FILTRATION RATE > 60.0 (>58); GLUCOSE, FASTING 94 MG/DL (70-100); POTASSIUM SERUM 3.7 MEQ/L (3.5-5.1); SODIUM LEVEL 139 MEQ/L (136-145)
[2021-08-20 23:05] LABS: CK-MB VALUE MASS 1.3 NG/ML (<3.6); MB/CK RELATIVE INDEX 1.26 (< OR =4)
[2021-08-20] MEDS ORDERED: KETOROLAC 30 MG/ML 1ML VIAL IV ONE (23:45)
[2021-08-21] MEDS ORDERED: LR 1,000 ML IV ONE (00:15)
[2021-08-21] MEDS ORDERED: diphenhydrAMINE 50MG/ML VIAL (J1200) IV STA (01:09)
[2021-08-21] MEDS ORDERED: PROCHLORPERAZINE 10MG/2ML VIAL (J0780 PER 1) IV ONE (01:10)
[2021-08-21 03:05] VITALS: BP 130/84
== END 2021-08-21 03:24 | disposition home or self-care (01) ==
LOC: M ED 19:27
DX: I16.1 Hypertensive emergency (principal); R51.9 Headache, unspecified; R00.0 Tachycardia, unspecified; J45.909 Unspecified asthma, uncomplicated; F31.9 Bipolar disorder, unspecified; Z88.1 Allergy status to other antibiotic agents; Z88.2 Allergy status to sulfonamides; Z79.899 Other long term (current) drug therapy
CPT/HCPCS: 36415; 70450; 70496; 70498; 80047; 80048; 82550; 82553; 83735; 84484; 85025; 85610; 85730; 93005; 96361; 96374; 96375; 99285; J0360; J0780; J1200; J1885; Q9967

== ENCOUNTER → 2023-02-05 | Outpatient (REF) | payer BC ==
[~2023-02-05] MED LIST changes: +ADV100INH INH; +AJOV225I SC; +CLON0.5T17 PO; +DICY-61 PO; -DICY10CA13 PO; +FLUT22IN INH; +GABA-282 PO; +LAMO25TA4 PO; +LEVAINH INH; +ONDA4TAB6 PO; +RIZA10TA64 PO; +YAZ1TAB PO
== END ==
LOC: M LAB REF 17:23
PROVIDERS: ATTEND Family Medicine
DX: J45.901 Unspecified asthma with (acute) exacerbation (principal)

== ENCOUNTER → 2024-10-12 | Outpatient (REF) | payer BC ==
[~2024-10-12] MED LIST changes: -ADV100INH INH; +ADVA1AER8 INH; +GABA-1172 PO; -GABA-282 PO; +LAMO-18 PO; -LAMO25TA4 PO; +LEVA15HF2 INH; -LEVAINH INH; +ONDA-282 PO; -ONDA4TAB6 PO; +TOPI-257 PO; -TOPI100T9 PO
[2024-10-12 12:44] LABS: APPEARANCE, URINE HAZY (CLEAR); BACTERIA, URINE AUTO 1+ (NEGATIVE); BILIRUBIN, URINE AUTO NEGATIVE (NEGATIVE); BLOOD, URINE BLOOD 3+ (NEGATIVE); GLUCOSE, URINE (UA) AUTO NEGATIVE (NEGATIVE); KETONE, URINE AUTO NEGATIVE (NEGATIVE); LEUKOCYTE ESTERASE, URINE AUTO 1+ (NEGATIVE); NITRITE, URINE AUTO NEGATIVE (NEGATIVE); PROTEIN, URINE AUTO NEGATIVE (NEGATIVE); RBC, URINE AUTO 1 /HPF (0-3); SPECIFIC GRAVITY URINE AUTO 1.005 (1.002-1.035); SQUAMOUS EPITHELIAL CELL UR AU 3 /HPF (0-6); UROBILINOGEN, URINE AUTO 0.2 mg/dL (0.0-2.0); WBC, URINE AUTO 9 /HPF (0-3)
[2024-10-12 14:48] LABS: Trichomonas vaginalis (AMP) NOT DETECTED (NEGATIVE)
[2024-10-12 15:12] LABS: GC DNA AMPLIFICATION NEGATIVE (NEGATIVE)
== END ==
LOC: M LAB REF 11:43
DX: Z20.2 Contact with and (suspected) exposure to infections with a predominantly sexual mode of transmission (principal)